=== PATIENT | female | born 1930 | race Caucasian/White ===

== ENCOUNTER 2016-12-06 12:13 | Emergency (ER) | payer MEDICARE, OTHER, MEDICAID ==
[~2016-12-06] VITALS: Ht 157.5 cm; Wt 64.0 kg
[~2016-12-06 12:13] MED LIST: AC325T PO; AMLO10TA PO; ASPI-587 PO; AZIT-21 PO; AZIT250T81 PO; CITA10TA70 PO; DCS100C PO; DONE10TA5 PO; EZET10TA23 PO; NAPR-243 PO; PRED10TA PO; TR1C15 TOP; TRAM50TA2 PO
--- OUTSIDE RECORDS SUMMARY | 2016-12-06 12:19 | XMS REPORT | Continuity of Care Document ---
Author Author [facility] Organization [facility] Address Unknown Phone Unavailable Care Team Providers Care Insurance Follow Up Representative Name Role Phone PRAVEENA TRIMBLE MD PCP Insurance Providers Payer Name Policy Number Subscriber Name Relationship s Medicare [id number] Nancy Glaser 18 Self / Same As Patient For Life [id number] Ananth Glaser 01 [facility] [id number] Nancy Glaser 18 Self / Same As Patient Advance Directives Directive Response Recorded Date/Time Advance Directives Yes 12/13/14 10:25am Health Care Power of Sightseeing Guide Y DEMARIOKirit LIM 12/13/14 10:25am Resuscitation Status DNR-Order Obtained 12/13/14 10:25am Chief Complaint and Reason for Visit Chief Complaint INFLUENZA A,HYPOKALEMIA,FALLS Reason for Visit Influenza A Falls Influenza A Hypokalemia Influenza A Problems Medical Problems Problem Onset Date Status Influenza A Unknown Active Falls Unknown Active Influenza A Unknown Active Hypokalemia Unknown Active Influenza A Unknown Active Medications Medication Dose Route Sig Days/Qty Instructions Order Date Discontinued Date Status Amlodipine Besylate 10 Mg PO DAILY 12/13/14 Active Aspirin 81 Mg PO DAILY 12/13/14 Active Ezetimibe 10 Mg PO DAILY 12/13/14 Active Citalopram Hydrobromide 10 Mg PO DAILY 12/13/14 Active Naproxen 500 Mg PO TWICE A DAY 12/13/14 Active Donepezil HCl 10 Mg PO BEDTIME 12/13/14 Active Docusate Sodium 100 Mg PO BEDTIME 12/13/14 Active Acetaminophen 650 Mg PO EVERY 4HRS PRN PAIN TAKES 2 (325MG) TABLETS Active Tramadol Hcl 50 Mg PO DAILY PRN HEADACHE 12/13/14 Active Azithromycin 250 Mg PO DAILY 12/13/14 12/15/14 Discontinued Azithromycin (Zpak) 0 PO Z-AMBER 6 Qty START DATE 12-12-14 12/15/14 Active Triamcinolone Acetonide (Kenalog 0.1% Cream) TOP TWICE A DAY PRN IRRITATION 12/15/14 Active Prednisone 10 Mg PO DAILY PRN SHORTNESS OF BREATH 7 Qty 12/16/14 Active Social History Social History Problem Response Recorded Date/Time Alcohol Use Denies Use 12/13/2014 10:30am Recreational Drug Use No 12/13/2014 10:30am Recent Foreign Travel No 12/13/2014 10:30am Recent Infectious Disease Exposure No 12/13/2014 10:30am Hospitalization with Isolation Denies 12/16/2014 11:26am Sexually Transmitted Disease No 12/13/2014 10:30am HIV/AIDS No 12/13/2014 10:30am Smoking Status Never a Smoker 12/13/2014 10:09am Do you dip or chew tobacco? No 12/13/2014 10:09am Query Response Start Date Stop Date Smoking Status Never a Smoker Hospital Discharge Instructions Patient Instructions Physician Instructions New, Converted or Re-Newed RX: Other Plan of Care/Instructions/FU: FU with her MD 1 week Activity as Tolerated: Yes Discharge Diet: Low Sodium Diet Return to [facility] For: fever sob Plan of Care Discharge Date 12/16/14 11:10am Disposition 30 STILL A PATIENT Instructions/Education Provided Influenza (DC) Prescriptions See Medications Section Referrals (Unspecified) 1 Week Reason(s) for Referral: schedule a follow up appointment in one week with her Physician Functional Status Query Response Date Recorded Patient Orientation Person Place Confused December 16, 2014 11:26am Comprehension Ability Understands Concepts December 16, 2014 9:00am Allergies, Adverse Reactions, Alerts Allergen Type Severity Reaction Status Last Updated Sulfa (Sulfonamide Antibiotics) ([id number]) Allergy Unknown Active Immunizations Name Given Type Date of Pneumonia Vaccine 07/21/14 Historical Date of Influenza Vaccine 07/21/14 Historical Hepatitis A No Historical Hepatitis B No Historical Tetanus Booster (TDap) Less than 5yrs Historical Vital Signs Acute Vital Signs Vital Response Date/Time Temperature (Fahrenheit) 98.7 degrees F (97.6 - 99.5) Temperature (Calculated Celsius) 37.06518 degrees C (36.4 - 37.5) Temperature Source Temporal Pulse Rate (adult) 65 bpm (60 - 90) Respiratory Rate 18 bpm (12 - 24) O2 Sat by Pulse Oximetry 96 % (88 - 100) Blood Pressure 158/66 mm Hg Pain Pain Intensity 0 Height (Feet) 5 feet Height (Inches) 2.00 inches Height (Calculated Centimeters) 157.072357 cm Weight (Pounds) 136 pounds Weight (Ounces) 9.0 oz Weight (Calculated Grams) 15962.709 gm Weight (Calculated Kilograms) 61.035522 kilograms Calculated BMI 24.87 Results Laboratory Results Test Name Result Units Flags Reference Collection Date/Time Result Date/ Time Comments White Blood Count 8.2 10^3/uL 4.3-11.0 12/13/2014 7:12/13/2014 7: 42am Red Blood Count 4.75 10^6/uL 4.35-5.85 12/13/2014 7:12/13/2014 7: 42am Hemoglobin 14.2 G/DL 11.5-16.0 12/13/2014 7:12/13/2014 7:42am Hematocrit 41 % 35-52 12/13/2014 7:12/13/2014 7:42am Mean Corpuscular Volume 86 FL 80-99 12/13/2014 7:12/13/2014 7: 42am Mean Corpuscular Hemoglobin 30 PG 25-34 12/13/2014 7:12/13/2014 7: 42am Mean Corpuscular Hemoglobin Concent 35 G/DL 32-36 12/13/2014 7: 7:42am Red Cell Distribution Width 12.8 % 10.0-14.5 12/13/2014 7:2014 7:42am Platelet Count 233 10^3/uL 130-400 12/13/2014 7:12/13/2014 7:42am Mean Platelet Volume 10.0 FL 7.4-10.4 12/13/2014 7:12/13/2014 7: 42am Neutrophils (%) (Auto) 78 % H 42-75 12/13/2014 7:12/13/2014 7:42am Lymphocytes (%) (Auto) 10 % L 12-44 12/13/2014 7:12/13/2014 7:42am Monocytes (%) (Auto) 12 % 0-12 12/13/2014 7:12/13/2014 7:42am Eosinophils (%) (Auto) 0 % 0-10 12/13/2014 7:12/13/2014 7:42am Basophils (%) (Auto) 0 % 0-10 12/13/2014 7:12/13/2014 7:42am Neutrophils # (Auto) 6.5 X 10^3 1.8-7.8 12/13/2014 7:12/13/2014 7: 42am Lymphocytes # (Auto) 0.8 X 10^3 L 1.0-4.0 12/13/2014 7:12/13/2014 7: 42am Monocytes # (Auto) 1.0 X 10^3 0.0-1.0 12/13/2014 7:12/13/2014 7: 42am Eosinophils # (Auto) 0.0 10^3/uL 0.0-0.3 12/13/2014 7:12/13/2014 7 :42am Basophils # (Auto) 0.0 10^3/uL 0.0-0.1 12/13/2014 7:12/13/2014 7: 42am Sodium Level 138 MMOL/L 135-145 12/14/2014 5:12/14/2014 6:24am Potassium Level 3.6 MMOL/L 3.6-5.0 12/14/2014 5:12/14/2014 6:24am Chloride Level 105 MMOL/L 98-107 12/14/2014 5:12/14/2014 6:24am Carbon Dioxide Level 24 MMOL/L 21-32 12/14/2014 5:12/14/2014 6: 24am Blood Urea Nitrogen 11 MG/DL 7-18 12/14/2014 5:12/14/2014 6:24am Creatinine 0.66 MG/DL 0.60-1.30 12/14/2014 5:12/14/2014 6:24am BUN/Creatinine Ratio 17 12/14/2014 5:12/14/2014 6:24am Estimat Glomerular Filtration Rate > 60 12/14/2014 5:2014 6:24am GFR INTERPRETIVE DATA UNITS FOR ESTIMATED GFR (eGFR): mL/min/1.73 M2 REFERENCE RANGE FOR ESTIMATED GFR (eGFR) eGFR NORMAL eGFR >60 MODERATELY DECREASED eGFR 30-59 SEVERLY DECREASED eGFR 15-29 KIDNEY FAILURE <15 (OR DIALYSIS) Glucose Level 140 MG/DL H 70-105 12/14/2014 5:12/14/2014 6:24am Calcium Level 8.8 MG/DL 8.5-10.1 12/14/2014 5:12/14/2014 6:24am Total Bilirubin 0.5 MG/DL 0.1-1.0 12/13/2014 7:12/13/2014 8:09am Alkaline Phosphatase 72 U/L 40-136 12/13/2014 7:12/13/2014 8:09am Aspartate Amino Transf (AST/SGOT) 43 U/L H 5-34 12/13/2014 7:2014 8:09am Alanine Aminotransferase (ALT/SGPT) 36 U/L 0-55 12/13/2014 7:12/13 8:09am Total Protein 7.0 G/DL 6.4-8.2 12/13/2014 7:12/13/2014 8:09am Albumin 4.0 G/DL 3.2-4.5 12/13/2014 7:12/13/2014 8:09am Procedures No known history of procedures. Encounters Encounter Location Date/Time Discharged Inpatient [facility] 12/13/14 1:40pm Recent Diagnosis Influenza A Falls Influenza A Hypokalemia Influenza A
--- NOTE | 2016-12-06 13:54 | Diagnostic Imaging Report ---
PROCEDURE: CT head and CT cervical spine without contrast. TECHNIQUE: Multiple contiguous axial images were obtained through the brain and cervical spine without the use of intravenous contrast. Sagittal and coronal reformations through the cervical spine were then performed. INDICATION: Fall. Pain above the right orbit. FINDINGS: CT head: There is no intracranial hemorrhage, edema, or mass effect. There is periventricular and deep white matter extensive somewhat symmetric hypodensities seen compatible with chronic microvascular ischemic changes, commonly seen at the patient's age. There is no hydrocephalus. No extra-axial fluid collection. The calvarium appears grossly unremarkable. The visualized portions of the orbits and paranasal sinuses demonstrate no obvious abnormality. CT cervical spine: There is satisfactory alignment of the posterior spinal line, of the facet joints, and of the lateral masses of C1 and C2. Good alignment of the atlantooccipital joints seen. No widening of the predental space. The vertebral body heights are preserved. There is moderate disc height loss at disc levels C3-C4 and C5-C6 with small posterior osteophytes seen at these levels. There is moderate foraminal stenosis bilaterally are also seen at these levels from uncovertebral and facet joint arthropathy. No fracture seen. IMPRESSION: CT head: No intracranial hemorrhage. Chronic white matter ischemic changes seen. CT cervical spine: No fracture seen. Prominent disc and facet degenerative changes. Dictated by: Dictated on workstation # [id number]
[2016-12-06 14:30] LABS: BILIRUBIN,URINE NEGATIVE (NEGATIVE); KETONES,URINE NEGATIVE (NEGATIVE); LEUKOCYTE ESTERASE ,URINE 2+ (NEGATIVE); NITRITE,URINE NEGATIVE (NEGATIVE); PH,URINE 5 (5-9); PROTEIN,URINE NEGATIVE (NEGATIVE); UROBILINOGEN,URINE NORMAL (NORMAL)
--- NOTE | 2016-12-06 14:59 | ED Fall/Injury ---
General Chief Complaint: Head/Cervical Problems Stated Complaint: FALL Nursing Triage Note: Pt fell in her room at the long term and reportedly hit her head. Denies LOC but patient is a poor historian about the fall. No bruising/redness/swelling noted on head. Source: patient, caregiver Exam Limitations: no limitations History of Present Illness Time seen by provider: 13:21 Initial Comments This pleasant 85-year-old woman presents to the emergency room after having a fall at the assisted living facility. No eyewitnesses are present with her at this time and she has poor recollection of the incident. She has absolutely no complaints at this time. There was no known loss of consciousness. No evidence of injury on exam. Patient is anxious to leave. She is ambulatory. Allergies and Home Medications Allergies Coded Allergies: Sulfa (Sulfonamide Antibiotics) (Verified Allergy, Unknown, 12/13/14) Home Medications Acetaminophen 325 Mg Tab 650 MG PO Q4H PRN PRN PAIN (Reported) TAKES 2 (325MG) TABLETS Amlodipine Besylate 10 Mg Tablet 10 MG PO DAILY (Reported) Aspirin 81 Mg Tablet.dr 81 MG PO DAILY (Reported) Azithromycin 250 Mg Tab #6 0 PO Z-AMBER (Reported) 2 Tabs 1st day (now), 1 Tab daily START DATE 12-12-14 Cephalexin 500 Mg Capsule #21 500 MG PO TID Prescribed by: GIBRAN GONZALEZ on 12/06/16 1541 Citalopram Hydrobromide 10 Mg Tablet 10 MG PO DAILY (Reported) Docusate Sodium 100 Mg Cap 100 MG PO HS (Reported) Donepezil HCl 10 Mg Tablet 10 MG PO HS (Reported) Ezetimibe 10 Mg Tablet 10 MG PO DAILY (Reported) Naproxen 500 Mg Tablet 500 MG PO BID (Reported) Prednisone 10 Mg Tablet #7 10 MG PO DAILY PRN PRN SHORTNESS OF BREATH Prescribed by: JOSE RAMIREZ on 12/16/14 0915 Tramadol Hcl 50 Mg Tablet 50 MG PO DAILY PRN PRN HEADACHE (Reported) Triamcinolone Acet 15 Gm Cr TOP BID PRN PRN IRRITATION (Reported) Constitutional: no symptoms reported Eyes: No Symptoms Reported Ears, Nose, Mouth, Throat: no symptoms reported Respiratory: no symptoms reported Cardiovascular: no symptoms reported Gastrointestinal: no symptoms reported Genitourinary: no symptoms reported : No Musculoskeletal: no symptoms reported Skin: no symptoms reported Psychiatric/Neurological: Other (Primary historian due to cognitive deficits related to dementia) Past Pyjepyo-Wkypqz-Ebtdch Hx Patient Social History Alcohol Use: Denies Use Recreational Drug Use: No Smoking Status: Never a Smoker Recent Foreign Travel: No Contact w/Someone Who Travel: No Recent Infectious Disease Expo: No Recent Hopitalizations: No Physical Abuse Screen: No Sexual Abuse: No Immunizations Up To Date Tetanus Booster (TDap): Less than 5yrs Date of Pneumonia Vaccine: Jul 21, 2014 Date of Influenza Vaccine: Jul 21, 2014 Surgeries HX Surgeries: Yes (ROCKY MASTECTOMY, HYSTERECTOMY) Surgeries: Hysterectomy, Orthopedic Respiratory Hx Respiratory Disorders: No Cardiovascular Hx Cardiac Disorders: Yes Cardiac Disorders: High Cholesterol, Hypertension Neurological Hx Neurological Disorders: Yes Neurological Disorders: Dementia Reproductive System : No Hx Reproductive Disorders: No Sexually Transmitted Disease: No HIV/AIDS: No Female Reproductive Disorders: Denies Genitourinary Hx Genitourinary Disorders: Yes Genitourinary Disorders: UTI-Chronic Gastrointestinal Hx Gastrointestinal Disorders: Yes Gastrointestinal Disorders: Gastroesophageal Reflux, Hiatal Hernia Musculoskeletal Hx Musculoskeletal Disorders: Yes (BROKEN ANKLE) Musculoskeletal Disorders: Chronic Back Pain, Fractures Endocrine Hx Endocrine Disorders: No HEENT HX ENT Disorders: No Loss of Vision: Denies Hearing Impairment: Denies Cancer Hx Cancer: Yes Cancer: Breast Psychosocial Hx Psychiatric Problems: Yes Behavioral Health Disorders: Depression Integumentary HX Skin/Integumentary Disorder: No Blood Transfusions Hx Blood Disorders: No Adverse Reaction to a Blood Tr: No Family Medical History Family Medial History: Alzheimer's disease G8 SISTER Cataracts G8 SISTER Dementia G8 SISTER Diabetes mellitus 19 MOTHER G8 SISTER Hypertension G8 BROTHER G8 BROTHER G8 SISTER Kidney disease G8 SISTER Neoplasm 19 FATHER Respiratory disorder 19 FATHER No Family History of: AIDS Abdominal aortic aneurysm Creston's disease Alcoholism Aphasia Arthritis Asthma Cancer of mouth Cardiovascular disease Colon cancer Completed stroke Congenital disease Congenital heart disease Coronary thrombosis Cystic fibrosis Deafness or hearing loss Drug abuse Dysphasia Fibrocystic disease of breast Gastroenteritis Glaucoma Headache disorder Hypercholesterolemia Infertility Myocardial infarction Not obtainable due to adoption Osteoporosis Parkinson's disease Prostate cancer Psychosocial problem Seizure disorder Severe allergy Thyroid disease Tuberculosis Visual disorder Physical Exam Vital Signs Vital Sign - Last 12Hours 12/06/16 12:39 Temp 97.6 Pulse 82 Resp 16 B/P 126/80 Pulse Ox 98 O2 Delivery Room Air Capillary Refill : Less Than 3 Seconds General Appearance: WD/WN no apparent distress HEENT: PERRL/EOMI normal ENT inspection pharynx normal Neck: non-tender full range of motion supple normal inspection Cardiovascular: regular rate, rhythm no edema no murmur Respiratory: lungs clear normal breath sounds no respiratory distress no accessory muscle use Gastrointestinal: non tender soft Back: normal inspection no vertebral tenderness Extremities: non-tender normal inspection other (No pain with hip palpation or rotation) Neurologic/Psychiatric: golf ball marker II-XII nml as tested no motor/sensory deficits alert normal mood/affect other (Baseline cognitive deficits from dementia) Skin: normal color warm/dry Jeff Coma Score Best Eye Response: (4) Open Spontaneously Best Verbal Response: (4) Confused Conversation (Baseline from dementia) Best Motor Response: (6) Obeys Commands Jeff Total: 15 Progress/Results/Core Measures Results/Orders Lab Results Laboratory Tests Test 12/06/16 14:15 Range/Units Urine Bacteria MODERATE H /HPF Urine Bilirubin NEGATIVE NEGATIVE Urine Casts NONE /LPF Urine Clarity CLEAR Urine Color YELLOW Urine Crystals NONE /LPF Urine Culture Indicated YES Urine Glucose (UA) NEGATIVE NEGATIVE Urine Ketones NEGATIVE NEGATIVE Urine Leukocyte Esterase 2+ H NEGATIVE Urine Mucus SMALL H /LPF Urine Nitrite NEGATIVE NEGATIVE Urine Protein NEGATIVE NEGATIVE Urine RBC RARE /HPF Urine RBC (Auto) 1+ H NEGATIVE Urine Specific [place] 1.030 H 1.016-1.022 Urine Squamous Epithelial Cells 10-25 H /HPF Urine Urobilinogen NORMAL NORMAL MG/DL Urine WBC 10-25 H /HPF Urine pH 5 5-9 Micro Results Microbiology 12/06/16 Urine Culture - Preliminary, Resulted My Orders Orders-GIBRAN ANDRES MD Ct Head/Cervical Spine Wo (12/06/16 13:21) Ua Culture If Indicated (12/06/16 13:21) Urine Culture (12/06/16 14:15) Vital Signs/I&O Vital Sign - Last 12Hours 12/06/16 12/06/16 12/06/16 12/06/16 12:39 15:47 15:48 15:48 Temp 97.6 97.6 97.6 97.6 Pulse 82 80 Resp 16 16 B/P 126/80 Pulse Ox 98 98 O2 Delivery Room Air Blood Pressure Mean: 95 Progress Note : Progress Note No injuries were identified. Patient was ambulatory in the ER. She was anxious to leave. Urinary tract infection was identified by UA. Treatment was initiated with Rocephin. Diagnostic Imaging Diagonstic Imaging: CT Plain Films/CT/US/NM/MRI: c-spine, head Comments CT head and C-spine viewed by me and report reviewed. See report below: NAME: MELODIE GLASER [facility] REC#: [id number] PT STATUS: REG ER : 1930 PHYSICIAN: GIBRAN ANDRES MD ADMIT DATE: 12/06/16/ER Signed Date of Exam:12/06/16 CT HEAD/CERVICAL SPINE WO PROCEDURE: CT head and CT cervical spine without contrast. TECHNIQUE: Multiple contiguous axial images were obtained through the brain and cervical spine without the use of intravenous contrast. Sagittal and coronal reformations through the cervical spine were then performed. INDICATION: Fall. Pain above the right orbit. FINDINGS: CT head: There is no intracranial hemorrhage, edema, or mass effect. There is periventricular and deep white matter extensive somewhat symmetric hypodensities seen compatible with chronic microvascular ischemic changes, commonly seen at the patient's age. There is no hydrocephalus. No extra-axial fluid collection. The calvarium appears grossly unremarkable. The visualized portions of the orbits and paranasal sinuses demonstrate no obvious abnormality. CT cervical spine: There is satisfactory alignment of the posterior spinal line, of the facet joints, and of the lateral masses of C1 and C2. Good alignment of the atlantooccipital joints seen. No widening of the predental space. The vertebral body heights are preserved. There is moderate disc height loss at disc levels C3-C4 and C5-C6 with small posterior osteophytes seen at these levels. There is moderate foraminal stenosis bilaterally are also seen at these levels from uncovertebral and facet joint arthropathy. No fracture seen. IMPRESSION: CT head: No intracranial hemorrhage. Chronic white matter ischemic changes seen. CT cervical spine: No fracture seen. Prominent disc and facet degenerative changes. Dictated by: Dictated on workstation # [id number] Dict: 12/06/16 1344 Trans: 12/06/16 1420 TIGIST [id number] Interpreted by: CORNELL DRAKE MD Electronically signed by: CORNELL DRAKE MD 12/06/16 1423 Departure Impression Impression: Primary Impression: Fall on same level Qualified Code: W18.30XA - Fall on same level, unspecified, initial encounter Additional Impression: Urinary tract infection Qualified Code: N39.0 - Urinary tract infection, site not specified Disposition: 01 HOME, SELF-CARE Condition: Improved Departure-Patient Inst. Decision time for Depature: 15:30 Referrals: PRAVEENA TRIMBLE MD (PCP/Family) Primary Care Physician Patient Instructions: Preventing Falls in the Older Adult, Urinary Tract Infections in Adults Add. Discharge Instructions: Encourage plenty of clear liquids. Complete your antibiotics as prescribed. Have your doctor follow-up on the urine culture results in 48 hours. Return to the emergency room if symptoms worsen. All discharge instructions reviewed with patient and/or family. Voiced understanding. Scripts Cephalexin (Keflex)500 Mg [id number] Mg PO TID #21 CAP Prov:GIBRAN ANDRES MD 12/06/16 Copy Copies To 1: PRAVEENA TRIMBLE MD, JOSHUA T MD Dec 06, 2016 14:59
[2016-12-06] MEDS ORDERED: cefTRIAXone 1 GM (ROCEPHIN) VIAL IM ONE (15:30)
[2016-12-06] MEDS ORDERED: cefTRIAXone INJECTION 1,000 MG in NORMAL SALINE (BAXTER MINI) 50 ML IV ONE (15:30)
[2016-12-06] MEDS ORDERED: LIDOCAINE 1% INJ 20 ML (XYLOCAINE) VIAL INJ ONE (15:30)
[2016-12-06] MEDS ORDERED: CEPH-507 PO (15:41)
[2016-12-06 15:48] VITALS: BP 121/80
== END 2016-12-06 15:48 | disposition home or self-care (01) ==
LOC: EDUNIT# 12:13 → ER 12:15
DX: S09.90XA Unspecified injury of head, initial encounter (principal); M47.812 Spondylosis without myelopathy or radiculopathy, cervical region; I10 Essential (primary) hypertension; Z79.82 Long term (current) use of aspirin; Z79.899 Other long term (current) drug therapy; W01.0XXA Fall on same level from slipping, tripping and stumbling without subsequent striking against object, initial encounter; Y92.129 Unspecified place in nursing home as the place of occurrence of the external cause; Y99.8 Other external cause status
CPT/HCPCS: 70450; 72125; 81000; 87088; 96372

== ENCOUNTER 2017-03-15 04:21 | Emergency (ER) | payer MEDICARE, OTHER, MEDICAID ==
[~2017-03-15] VITALS: Ht 157.5 cm; Wt 63.5 kg
[~2017-03-15 04:21] MED LIST changes: +CEPH-507 PO
[2017-03-15] MEDS ORDERED: TETANUS,DIPTH,PERTUSS P/F (BOOSTRIX) 0.5 ML VIAL IM ONE (04:30)
[2017-03-15 04:47] LABS: BASOPHILS % (AUTO) 0 % (0-10); EOSINOPHILS # (AUTO) 0.1 10^3/uL (0.0-0.3); EOSINOPHILS % (AUTO) 2 % (0-10); LYMPHOCYTES # (AUTO) 2.8 X 10^3 (1.0-4.0); LYMPHOCYTES % (AUTO) 46 % (12-44); MEAN CORPUSCULAR HEMOGLOBIN 24 PG (25-34); MEAN CORPUSCULAR HGB CONC 32 G/DL (32-36); MEAN CORPUSCULAR VOLUME 76 FL (80-99); MEAN PLATELET VOLUME 9.2 FL (7.4-10.4); MONOCYTES # (AUTO) 0.7 X 10^3 (0.0-1.0); MONOCYTES % (AUTO) 12 % (0-12); NEUTROPHILS # (AUTO) 2.5 X 10^3 (1.8-7.8); NEUTROPHILS % (AUTO) 41 % (42-75); PLATELET COUNT 333 10^3/uL (130-400); RED CELL DISTRIBUTION WIDTH 16.3 % (10.0-14.5); WHITE BLOOD COUNT 6.2 10^3/uL (4.3-11.0)
[2017-03-15 05:09] LABS: ALANINE AMINOTRANSFERASE 10 U/L (0-55); ALBUMIN 4.3 G/DL (3.2-4.5); ANION GAP 13 MMOL/L (5-14); ASPARTATE AMINO TRANSFERASE 19 U/L (5-34); BILIRUBIN,TOTAL 0.3 MG/DL (0.1-1.0); BLOOD UREA NITROGEN 12 MG/DL (7-18); BUN/CREATININE RATIO 17; CALCIUM 8.9 MG/DL (8.5-10.1); CARBON DIOXIDE 21 MMOL/L (21-32); CHLORIDE 109 MMOL/L (98-107); CREATININE SERUM 0.69 MG/DL (0.60-1.30); GFR ESTIMATED > 60; GLUCOSE 100 MG/DL (70-105); POTASSIUM 3.5 MMOL/L (3.6-5.0); SODIUM 143 MMOL/L (135-145)
[2017-03-15 05:15] LABS: BILIRUBIN,URINE NEGATIVE (NEGATIVE); KETONES,URINE NEGATIVE (NEGATIVE); LEUKOCYTE ESTERASE ,URINE 1+ (NEGATIVE); NITRITE,URINE NEGATIVE (NEGATIVE); PH,URINE 7 (5-9); PROTEIN,URINE NEGATIVE (NEGATIVE); UROBILINOGEN,URINE NORMAL (NORMAL)
[2017-03-15] MEDS ORDERED: LIDOCAINE/EPI 1%-1:100,000 (XYLOCAINE) 20ML INJ ONE (05:15)
[2017-03-15 05:26] LABS: WBC,URINE RARE /HPF
--- NOTE | 2017-03-15 05:42 | ED Fall/Injury ---
General Chief Complaint: Trauma-Non Activation Stated Complaint: FALL,ABRASION BELOW L EYE Nursing Triage Note: PT TO ED 7 PER EMS FOR LACERATION ONSET AFTER FALL AT ASSISTED LIVING. Source: patient, EMS, retirement records, caregiver Exam Limitations: no limitations History of Present Illness Time seen by provider: 04:25 Initial Comments This 86-year-old resident of [facility] presents via EMS with a facial laceration beneath the left eye after having an unwitnessed fall. Patient is a poor historian due to dementia. The fall was unwitnessed. There is no known loss of consciousness. Patient is alert and at her baseline orientation. She denies any other injuries. EMS reports she walked freely and independently to the cot. Location Injury Occurred: [facility] Allergies and Home Medications Allergies Coded Allergies: Sulfa (Sulfonamide Antibiotics) (Verified Allergy, Unknown, 12/13/14) Home Medications Acetaminophen 325 Mg Tab, 650 MG PO Q4H PRN for PAIN, (Reported) TAKES 2 (325MG) TABLETS Amlodipine Besylate 10 Mg Tablet, 10 MG PO DAILY, (Reported) Aspirin 81 Mg Tablet.dr, 81 MG PO DAILY, (Reported) Azithromycin 250 Mg Tab, 0 PO Z-AMBER, #6 (Reported) 2 Tabs 1st day (now), 1 Tab daily START DATE 12-12-14 Cephalexin 500 Mg Capsule, 500 MG PO TID, #21 Prescribed by: GIBRAN GONZALEZ on 12/06/16 1541 Citalopram Hydrobromide 10 Mg Tablet, 10 MG PO DAILY, (Reported) Docusate Sodium 100 Mg Cap, 100 MG PO HS, (Reported) Donepezil HCl 10 Mg Tablet, 10 MG PO HS, (Reported) Ezetimibe 10 Mg Tablet, 10 MG PO DAILY, (Reported) Naproxen 500 Mg Tablet, 500 MG PO BID, (Reported) Prednisone 10 Mg Tablet, 10 MG PO DAILY PRN for SHORTNESS OF BREATH, #7 Ref 0 Prescribed by: JOSE RAMIREZ on 12/16/14 0915 Tramadol Hcl 50 Mg Tablet, 50 MG PO DAILY PRN for HEADACHE, (Reported) Triamcinolone Acet 15 Gm Cr, TOP BID PRN for IRRITATION, (Reported) Constitutional: no symptoms reported Eyes: No Symptoms Reported Ears, Nose, Mouth, Throat: see HPI Respiratory: no symptoms reported Cardiovascular: no symptoms reported Gastrointestinal: no symptoms reported Genitourinary: no symptoms reported Musculoskeletal: no symptoms reported Skin: see HPI Psychiatric/Neurological: See HPI Past Eemlgqq-Ndomev-Jnbmtw Hx Patient Social History Alcohol Use: Denies Use Recreational Drug Use: No Smoking Status: Never a Smoker Recent Foreign Travel: No Contact w/Someone Who Travel: No Recent Infectious Disease Expo: No Recent Hopitalizations: No Immunizations Up To Date Tetanus Booster (TDap): Less than 5yrs Date of Pneumonia Vaccine: Jul 21, 2014 Date of Influenza Vaccine: Jul 21, 2014 Surgeries HX Surgeries: Yes (ROCKY MASTECTOMY, HYSTERECTOMY) Surgeries: Hysterectomy, Orthopedic Respiratory Hx Respiratory Disorders: No Cardiovascular Hx Cardiac Disorders: Yes Cardiac Disorders: High Cholesterol, Hypertension Neurological Hx Neurological Disorders: Yes Neurological Disorders: Dementia Reproductive System Hx Reproductive Disorders: No Sexually Transmitted Disease: No HIV/AIDS: No Female Reproductive Disorders: Denies Genitourinary Hx Genitourinary Disorders: Yes Genitourinary Disorders: UTI-Chronic Gastrointestinal Hx Gastrointestinal Disorders: Yes Gastrointestinal Disorders: Gastroesophageal Reflux, Hiatal Hernia Musculoskeletal Hx Musculoskeletal Disorders: Yes (BROKEN ANKLE) Musculoskeletal Disorders: Chronic Back Pain, Fractures Endocrine Hx Endocrine Disorders: No HEENT HX ENT Disorders: No Loss of Vision: Denies Hearing Impairment: Denies Cancer Hx Cancer: Yes Cancer: Breast Psychosocial Hx Psychiatric Problems: Yes Behavioral Health Disorders: Depression Integumentary HX Skin/Integumentary Disorder: No Blood Transfusions Hx Blood Disorders: No Adverse Reaction to a Blood Tr: No Family Medical History Family Medial History: Alzheimer's disease G8 SISTER Cataracts G8 SISTER Dementia G8 SISTER Diabetes mellitus 19 MOTHER G8 SISTER Hypertension G8 BROTHER G8 BROTHER G8 SISTER Kidney disease G8 SISTER Neoplasm 19 FATHER Respiratory disorder 19 FATHER No Family History of: AIDS Abdominal aortic aneurysm Shaw[place]'s disease Alcoholism Aphasia Arthritis Asthma Cancer of mouth Cardiovascular disease Colon cancer Completed stroke Congenital disease Congenital heart disease Coronary thrombosis Cystic fibrosis Deafness or hearing loss Drug abuse Dysphasia Fibrocystic disease of breast Gastroenteritis Glaucoma Headache disorder Hypercholesterolemia Infertility Myocardial infarction Not obtainable due to adoption Osteoporosis Parkinson's disease Prostate cancer Psychosocial problem Seizure disorder Severe allergy Thyroid disease Tuberculosis Visual disorder Physical Exam Vital Signs Vital Sign - Last 12Hours 03/15/17 04:21 Temp 97.3 Pulse 101 Resp 20 B/P (MAP) 194/83 Pulse Ox 94 O2 Delivery Room Air Capillary Refill : Less Than 3 Seconds General Appearance: WD/WN, no apparent distress HEENT: PERRL/EOMI, TMs normal, pharynx normal, other (2 cm laceration on the left cheek) Neck: non-tender, full range of motion, supple Cardiovascular: regular rate, rhythm, no edema, no murmur Respiratory: lungs clear, normal breath sounds, no respiratory distress, no accessory muscle use Gastrointestinal: non tender, soft Extremities: normal inspection, no pedal edema, other (normal range of motion in the lower extremities with no joint pain.) Neurologic/Psychiatric: nurse gynecology II-XII nml as tested, no motor/sensory deficits, alert, normal mood/affect, other (cognitive deficits due to dementia at baseline ) Skin: normal color, warm/dry [place] Coma Score Best Eye Response: (4) Open Spontaneously Best Verbal Response: (4) Confused Conversation Best Motor Response: (6) Obeys Commands Jeff Total: 14 Laceration Repair : Wound Location: Face Other Wound Location Left cheek Wound Length (cm): 2 Wound's Depth, Shape: superficial, flap Wound Explored: clean Betadine Prep?: Yes Anesthesia: Lidocaine w/ Epi Volume Anesthetic (ccs): 4 Suture: Prolene Suture Size: 5-0 Number of Sutures: 3 Sterile Dressing Applied?: No Progress Wound was cleaned by nursing. Local anesthesia was provided with lidocaine with epinephrine. Wound was approximated with 3 sutures of 5-0 Prolene. Patient tolerated the procedure well. Closure controlled the bleeding. Progress/Results/Core Measures Results/Orders Lab Results Laboratory Tests Test 03/15/17 04:36 03/15/17 05:09 Range/Units White Blood Count 6.2 4.3-11.0 10^3/uL Red Blood Count 5.00 4.35-5.85 10^6/uL Hemoglobin 12.0 11.5-16.0 G/DL Hematocrit 38 35-52 % Mean Corpuscular Volume 76 L 80-99 FL Mean Corpuscular Hemoglobin 24 L 25-34 PG Mean Corpuscular Hemoglobin Concent 32 32-36 G/DL Red Cell Distribution Width 16.3 H 10.0-14.5 % Platelet Count 333 130-400 10^3/uL Mean Platelet Volume 9.2 7.4-10.4 FL Neutrophils (%) (Auto) 41 L 42-75 % Lymphocytes (%) (Auto) 46 H 12-44 % Monocytes (%) (Auto) 12 0-12 % Eosinophils (%) (Auto) 2 0-10 % Basophils (%) (Auto) 0 0-10 % Neutrophils # (Auto) 2.5 1.8-7.8 X 10^3 Lymphocytes # (Auto) 2.8 1.0-4.0 X 10^3 Monocytes # (Auto) 0.7 0.0-1.0 X 10^3 Eosinophils # (Auto) 0.1 0.0-0.3 10^3/uL Basophils # (Auto) 0.0 0.0-0.1 10^3/uL Sodium Level 143 135-145 MMOL/L Potassium Level 3.5 L 3.6-5.0 MMOL/L Chloride Level 109 H 98-107 MMOL/L Carbon Dioxide Level 21 21-32 MMOL/L Anion Gap 13 5-14 MMOL/L Blood Urea Nitrogen 12 7-18 MG/DL Creatinine 0.69 0.60-1.30 MG/DL Estimat Glomerular Filtration Rate > 60 BUN/Creatinine Ratio 17 Glucose Level 100 70-105 MG/DL Calcium Level 8.9 8.5-10.1 MG/DL Total Bilirubin 0.3 0.1-1.0 MG/DL Aspartate Amino Transf (AST/SGOT) 19 5-34 U/L Alanine Aminotransferase (ALT/SGPT) 10 0-55 U/L Alkaline Phosphatase 69 40-136 U/L Total Protein 7.0 6.4-8.2 G/DL Albumin 4.3 3.2-4.5 G/DL Urine Color YELLOW Urine Clarity CLEAR Urine pH 7 5-9 Urine Specific [place] 1.010 L 1.016-1.022 Urine Protein NEGATIVE NEGATIVE Urine Glucose (UA) NEGATIVE NEGATIVE Urine Ketones NEGATIVE NEGATIVE Urine Nitrite NEGATIVE NEGATIVE Urine Bilirubin NEGATIVE NEGATIVE Urine Urobilinogen NORMAL NORMAL MG/DL Urine Leukocyte Esterase 1+ H NEGATIVE Urine RBC (Auto) 3+ H NEGATIVE Urine RBC 5-10 H /HPF Urine WBC RARE /HPF Urine Squamous Epithelial Cells 2-5 /HPF Urine Crystals NONE /LPF Urine Bacteria NEGATIVE /HPF Urine Casts NONE /LPF Urine Mucus NEGATIVE /LPF Urine Culture Indicated NO My Orders Orders - GIBRAN ANDRES MD Cbc With Automated Diff (03/15/17 04:27) Comprehensive Metabolic Panel (03/15/17 04:27) Ua Culture If Indicated (03/15/17 04:27) Ct Head/Face/Cervical Wo (03/15/17 04:27) Saline Lock/Iv-Start (03/15/17 04:27) Dipht,Pertuss(Acell),Tet Adult (Boostrix (03/15/17 04:30) Lidocaine/Epi 1% 1:100,000 (Xylocaine /E (03/15/17 05:15) Medications Given in ED Vital Signs/I&O Vital Sign - Last 12Hours 03/15/17 03/15/17 04:21 06:45 Temp 97.3 Pulse 101 91 Resp 20 18 B/P (MAP) 194/83 Pulse Ox 94 98 O2 Delivery Room Air Blood Pressure Mean: 120 Progress Note : Progress Note CT of the head, face and C-spine was obtained and reviewed. No significant injuries were identified. Wound was repaired. Labs and UA reviewed. Boostrix tetanus booster administered. Diagnostic Imaging Diagonstic Imaging: CT Plain Films/CT/US/NM/MRI: facial bones, c-spine, head Comments CT viewed by me and [employer] report reviewed. No bony or intracranial injuries identified. There is mucosal thickening of the right maxillary sinus and soft tissue injury of the left face. Departure Impression Impression: Primary Impression: Fall on same level Qualified Codes: W18.30XA - Fall on same level, unspecified, initial encounter Additional Impression: Laceration of face Qualified Codes: S01.81XA - Laceration without foreign body of other part of head, initial encounter Disposition: 01 HOME, SELF-CARE Condition: Improved Departure-Patient Inst. Decision time for Depature: 06:30 Referrals: PRAVEENA TRIMBLE MD (PCP/Family) Primary Care Physician Patient Instructions: Laceration Repair With Stitches (DC) Add. Discharge Instructions: Monitor for signs of infection such as increasing redness, puslike drainage, or fever. Return to care promptly if you notice these symptoms. Return in 5-7 days for suture removal. All discharge instructions reviewed with patient and/or family. Voiced understanding. GIBRAN ANDRES MD Mar 15, 2017 05:42
[2017-03-15 06:45] VITALS: BP 182/86
--- NOTE | 2017-03-15 07:44 | Diagnostic Imaging Report ---
PROCEDURE: CT head, face, and cervical spine without contrast. TECHNIQUE: Multiple contiguous axial images were obtained through the head, neck, and facial bones without the use of intravenous contrast. Sagittal and coronal reformations through the cervical spine and facial bones were also performed. INDICATION: Fall with laceration to cheek bone. FINDINGS: CT head: There is cortical atrophy with periventricular white matter changes. No mass effect. No intracranial hemorrhage. No evidence of calvarial fractures. Mastoid air cells and paranasal sinuses are clear. There is left facial soft tissue swelling consistent with hematoma. IMPRESSION: Cortical atrophy with soft tissue hematoma of the scalp. CT facial bones: No fractures are demonstrated of the facial bones. Paranasal sinuses are well-aerated. There is some mucosal thickening within the right maxillary sinus. There is considerable soft tissue swelling over the left mid face. IMPRESSION: Large hematoma overlying the left mid face with no bony fractures demonstrated. CT cervical spine: Sagittal and coronal images show good alignment of vertebral bodies. Body heights and disc spaces well maintained. Facets are in good position. No fractures. Diffuse degenerative changes noted. IMPRESSION: Diffuse degenerative cervical disc disease with no acute abnormality. These findings are in agreement with the preliminary report. Dictated by: Dictated on workstation # [id number]
== END 2017-03-15 06:45 | disposition home or self-care (01) ==
LOC: EDUNIT# 04:21 → ER 04:25
DX: S01.412A Laceration without foreign body of left cheek and temporomandibular area, initial encounter (principal); Z23 Encounter for immunization; I10 Essential (primary) hypertension; F03.90 Unspecified dementia, unspecified severity, without behavioral disturbance, psychotic disturbance, mood disturbance, and anxiety; Z79.82 Long term (current) use of aspirin; Z79.899 Other long term (current) drug therapy; W01.0XXA Fall on same level from slipping, tripping and stumbling without subsequent striking against object, initial encounter; Y92.129 Unspecified place in nursing home as the place of occurrence of the external cause; Y99.8 Other external cause status
CPT/HCPCS: 12011; 36415; 70450; 70486; 72125; 80053; 81000; 85025; 90471; 90715

== ENCOUNTER 2018-05-08 17:50 | Emergency (ER) | payer MEDICARE, OTHER, MEDICAID ==
[~2018-05-08] VITALS: Ht 157.5 cm; Wt 54.4 kg
--- OUTSIDE RECORDS SUMMARY | 2018-05-08 17:56 | XMS REPORT | Continuity of Care Document ---
Author Author [facility] Organization [facility] Address Unknown Phone Unavailable Allergies Active Description Code Type Severity Reaction Onset Reported/Identified Relationship to Patient Clinical Status Yes Sulfa (Sulfonamide Antibiotics) [id number] Drug Allergy Unknown N/A 2014 Medications There is no data. Problems Date Dx Coded Attending Type Code Diagnosis Diagnosed By 12/16/2014 JAMES ARAUZ, JOSE Rahman Ot 272.0 PURE HYPERCHOLESTEROLEM 12/16/2014 JAMES ARAUZ, JOSE Rahman Ot 276.8 HYPOPOTASSEMIA 12/16/2014 JAMES ARAUZ, JOSE Rahamn Ot 294.20 DEMENTIA, UNSPECIFIED, WITHOUT BEHAVIORA 12/16/2014 JAMES ARAUZ, JOSE Rahman Ot 401.9 HYPERTENSION NOS 12/16/2014 JAMES ARAUZ, JOSE Rahman Ot 487.1 FLU W RESP MANIFEST NEC 12/16/2014 JAMES ARAUZ, JOSE Rahman Ot 530.81 ESOPHAGEAL REFLUX 12/16/2014 JOSE RAMIREZ MD Ot 553.3 DIAPHRAGMATIC HERNIA 12/16/2014 JAMES ARAUZ, JOSE Rahman Ot 715.90 OSTEOARTHROS NOS-UNSPEC 05/14/2015 NAI ARAUZ, PRAVEENA Pryor Ot 812.01 05/14/2015 NAI ARAUZ, PRAVEENA Pryor Ot E000.8 05/14/2015 NAI ARAUZ, PRAVEENA Pryor Ot E888.9 05/16/2015 NAI ARAUZ, PRAVEENA Pryor Ot 812.01 05/16/2015 NAI ARAUZ, PRAVEENA Pryor Ot E000.8 05/16/2015 NAI ARAUZ, PRAVEENA Pryor Ot E888.9 05/16/2015 NAI ARAUZ, PRAVEENA Pryor Ot 812.01 05/16/2015 NAI ARAUZ, PRAVEENA Pryor Ot E000.8 05/16/2015 NAI ARAUZ, PRAVEENA Pryor Ot E888.9 12/06/2016 DMITRY ARAUZ, GIBRAN Mejia Ot I10 ESSENTIAL (PRIMARY) HYPERTENSION 12/06/2016 BRUEGGEGIBRAN FRAGA MD Ot M47.812 SPONDYLOSIS W/O MYELOPATHY OR RADICULOPA 12/06/2016 GIBRAN ANDRES MD Ot S09.90XA UNSPECIFIED INJURY OF HEAD, INITIAL ENCO 12/06/2016 GIBRAN ANDRES MD, Ot W01.0XXA FALL SAME LEV FROM SLIP/TRIP W/O STRIKE 12/06/2016 GIBRAN ANDRES MD Ot Y92.[address] [facility]DC PLACE 12/06/2016 GIBRAN ANDRES MD Ot Y99.8 OTHER EXTERNAL CAUSE STATUS 12/06/2016 GIBRAN ANDRES MD Ot Z79.82 JAIL (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 12/06/2016 GIBRAN ANDRES MD Ot Z79.899 OTHER JAIL (CURRENT) DRUG THERAPY 03/15/2017 PRAVEENA TRIMBLE MD Ot 812.01 FX SURG NCK HUMERUS-CLOS 03/15/2017 PRAVEENA TRIMBLE MD Ot E000.8 OTHER EXTERNAL CAUSE STATUS 03/15/2017 PRAVEENA TRIMBLE MD L Ot E888.9 FALL NOS 03/15/2017 PRAVEENA TRIMBLE MD Ot 812.01 FX SURG NCK HUMERUS-CLOS 03/15/2017 PRAVEENA TRIMBLE MD Ot E000.8 OTHER EXTERNAL CAUSE STATUS 03/15/2017 PRAVEENA TRIMBLE MD Ot E888.9 FALL NOS 03/15/2017 GIBRAN ANDRES MD Ot F03.90 UNSPECIFIED DEMENTIA WITHOUT BEHAVIORAL 03/15/2017 GIBRAN ANDRES MD Ot I10 ESSENTIAL (PRIMARY) HYPERTENSION 03/15/2017 GIBRAN ANDRES MD Ot S01.412A LACERATION W/O FOREIGN BODY OF LEFT ERICA 03/15/2017 GIBRAN ANDRES MD Ot W01.0XXA FALL SAME LEV FROM SLIP/TRIP W/O STRIKE 03/15/2017 GIBRAN ANDRES MD Ot Y92.[address] [facility]DC PLACE 03/15/2017 GIBRAN ANDRES MD Ot Y99.8 OTHER EXTERNAL CAUSE STATUS 03/15/2017 GIBRAN ANDRES MD Ot Z23 ENCOUNTER FOR IMMUNIZATION 03/15/2017 GIBRAN ANDRES MD, Ot Z79.82 JAIL (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 03/15/2017 GIBRAN ANDRES MD, Ot Z79.899 OTHER JAIL (CURRENT) DRUG THERAPY 03/17/2017 GIBRAN ANDRES MD, Ot F03.90 UNSPECIFIED DEMENTIA WITHOUT BEHAVIORAL 03/17/2017 GIBRAN ANDRES MD, Ot I10 ESSENTIAL (PRIMARY) HYPERTENSION 03/17/2017 GIBRAN ANDRES MD, Ot S01.412A LACERATION W/O FOREIGN BODY OF LEFT ERICA 03/17/2017 GIBRAN ANDRES MD, Ot W01.0XXA FALL SAME LEV FROM SLIP/TRIP W/O STRIKE 03/17/2017 GIBRAN ANDRES MD, Ot Y92.[address] [facility] PLACE 03/17/2017 GIBRAN ANDRES MD, Ot Y99.8 OTHER EXTERNAL CAUSE STATUS 03/17/2017 GIBRAN ANDRES MD, Ot Z23 ENCOUNTER FOR IMMUNIZATION 03/17/2017 GIBRAN ANDRES MD, Ot Z79.82 JAIL (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 03/17/2017 GIBRAN ANDRES MD, Ot Z79.899 OTHER JAIL (CURRENT) DRUG THERAPY Procedures There is no data. Results Test Result Range Complete urinalysis with reflex to culture - 12/06/16 14:15 Urine color determination YELLOW NRG Urine clarity determination CLEAR NRG Urine pH measurement by test strip 5 5-9 Specific gravity of urine by test strip 1.030 1.016- 1.022 Urine protein assay by test strip, semi-quantitative NEGATIVE NEGATIVE Urine glucose detection by automated test strip NEGATIVE NEGATIVE Erythrocytes detection in urine sediment by light microscopy 1+ NEGATIVE Urine ketones detection by automated test strip NEGATIVE NEGATIVE Urine nitrite detection by test strip NEGATIVE NEGATIVE Urine total bilirubin detection by test strip NEGATIVE NEGATIVE Urine urobilinogen measurement by automated test strip (mass/volume) NORMAL NORMAL Urine leukocyte esterase detection by dipstick 2+ NEGATIVE Automated urine sediment erythrocyte count by microscopy (number/high power field) RARE NRG Automated urine sediment leukocyte count by microscopy (number/high power field ) [HPF] NRG Bacteria detection in urine sediment by light microscopy MODERATE NRG Squamous epithelial cells detection in urine sediment by light microscopy 10-25 NRG Crystals detection in urine sediment by light microscopy NONE NRG Casts detection in urine sediment by light microscopy NONE NRG Mucus detection in urine sediment by light microscopy SMALL NRG Complete urinalysis with reflex to culture YES NRG Bacterial urine culture - 12/06/16 14:15 URINE CULTURE RESULTS UNLESS REQUESTED NRG Complete blood count (CBC) with automated white blood cell (WBC) differential - 03/15/17 04:36 Blood leukocytes automated count (number/volume) 6.2 10*3/uL 4.3-11.0 Blood erythrocytes automated count (number/volume) 5.00 10*6/uL 4.35-5.85 Venous blood hemoglobin measurement (mass/volume) 12.0 g/dL 11.5-16.0 Blood hematocrit (volume fraction) 38 % 35-52 Automated erythrocyte mean corpuscular volume 76 [foz_us] 80-99 Automated erythrocyte mean corpuscular hemoglobin (mass per erythrocyte) 24 pg 25-34 Automated erythrocyte mean corpuscular hemoglobin concentration measurement ( mass/volume) 32 g/dL 32-36 Automated erythrocyte distribution width ratio 16.3 % 10.0-14.5 Automated blood platelet count (count/volume) 333 10*3/uL 130-400 Automated blood platelet mean volume measurement 9.2 [foz_us] 7.4-10.4 Automated blood neutrophils/100 leukocytes 41 % 42-75 Automated blood lymphocytes/100 leukocytes 46 % 12-44 Blood monocytes/100 leukocytes 12 % 0-12 Automated blood eosinophils/100 leukocytes 2 % 0-10 Automated blood basophils/100 leukocytes 0 % 0-10 Blood neutrophils automated count (number/volume) 2.5 10*3 1.8-7.8 Blood lymphocytes automated count (number/volume) 2.8 10*3 1.0-4.0 Blood monocytes automated count (number/volume) 0.7 10*3 0.0-1.0 Automated eosinophil count 0.1 10*3/uL 0.0-0.3 Automated blood basophil count (count/volume) 0.0 10*3/uL 0.0-0.1 Comprehensive metabolic panel - 03/15/17 04:36 Serum or plasma sodium measurement (moles/volume) 143 mmol/L 135-145 Serum or plasma potassium measurement (moles/volume) 3.5 mmol/L 3.6-5.0 Serum or plasma chloride measurement (moles/volume) 109 mmol/L 98-107 Carbon dioxide 21 mmol/L 21-32 Serum or plasma anion gap determination (moles/volume) 13 mmol/L 5-14 Serum or plasma urea nitrogen measurement (mass/volume) 12 mg/dL 7-18 Serum or plasma creatinine measurement (mass/volume) 0.69 mg/dL 0.60-1.30 Serum or plasma urea nitrogen/creatinine mass ratio 17 NRG Serum or plasma creatinine measurement with calculation of estimated glomerular filtration rate > NRG Serum or plasma glucose measurement (mass/volume) 100 mg/dL 70-105 Serum or plasma calcium measurement (mass/volume) 8.9 mg/dL 8.5-10.1 Serum or plasma total bilirubin measurement (mass/volume) 0.3 mg/dL 0.1-1.0 Serum or plasma alkaline phosphatase measurement (enzymatic activity/volume) 69 U/L 40-136 Serum or plasma aspartate aminotransferase measurement (enzymatic activity/ volume) 19 U/L 5-34 Serum or plasma alanine aminotransferase measurement (enzymatic activity/volume ) 10 U/L 0-55 Serum or plasma protein measurement (mass/volume) 7.0 g/dL 6.4-8.2 Serum or plasma albumin measurement (mass/volume) 4.3 g/dL 3.2-4.5 Complete urinalysis with reflex to culture - 03/15/17 05:09 Urine color determination YELLOW NRG Urine clarity determination CLEAR NRG Urine pH measurement by test strip 7 5-9 Specific gravity of urine by test strip 1.010 1.016- 1.022 Urine protein assay by test strip, semi-quantitative NEGATIVE NEGATIVE Urine glucose detection by automated test strip NEGATIVE NEGATIVE Erythrocytes detection in urine sediment by light microscopy 3+ NEGATIVE Urine ketones detection by automated test strip NEGATIVE NEGATIVE Urine nitrite detection by test strip NEGATIVE NEGATIVE Urine total bilirubin detection by test strip NEGATIVE NEGATIVE Urine urobilinogen measurement by automated test strip (mass/volume) NORMAL NORMAL Urine leukocyte esterase detection by dipstick 1+ NEGATIVE Automated urine sediment erythrocyte count by microscopy (number/high power field) [HPF] NRG Automated urine sediment leukocyte count by microscopy (number/high power field ) RARE NRG Bacteria detection in urine sediment by light microscopy NEGATIVE NRG Squamous epithelial cells detection in urine sediment by light microscopy 2-5 NRG Crystals detection in urine sediment by light microscopy NONE NRG Casts detection in urine sediment by light microscopy NONE NRG Mucus detection in urine sediment by light microscopy NEGATIVE NRG Complete urinalysis with reflex to culture NO NRG Encounters ACCT No. Visit Date/Time Discharge Status Pt. Type Provider Facility Loc./Unit Complaint [id number] 03/15/2017 04:25:00 03/15/2017 06:45:00 DIS Emergency GIBRAN ANDRES MD [facility] ER FALL,ABRASION BELOW L EYE [id number] 12/06/2016 12:15:00 12/06/2016 15:48:00 DIS Emergency GIBRAN ANDRES MD [facility] ER FALL [id number] 04/14/2015 11:58:00 04/14/2015 23:59:59 CLS Outpatient PRAVEENA TRIMBLE MD [facility] RAD FALL/SHOULDER PAIN [id number] 12/13/2014 13:40:00 12/16/2014 11:10:00 DIS Inpatient JAMES ARAUZ, JOSE Rahman [facility] 4TH INFLUENZA A,HYPOKALEMIA, FALLS [id number] 04/15/2015 05:39:57 ACT Document Registration
--- NOTE | 2018-05-08 18:11 | ED Fall/Injury ---
General Chief Complaint: Trauma-Non Activation Stated Complaint: FALL Nursing Triage Note: PT ARRIVED PER EMS PT CO OF FALL, HIT R SIDE OF HEAD ON FLOOR. DENIES LOC. STATES JUST WANTS TO GO BACK HOME Source: patient Exam Limitations: no limitations History of Present Illness Date Seen by Provider: May 08, 2018 Time Seen by Provider: 18:08 Initial Comments to ER per EMS from [place], with reports of a fall. She didn't strike her head during the fall but insists that she did not lose consciousness. She denies any neck pain. She states she has no pain anywhere and just wants to go home.she states that she slipped and fell and did not have any preceding dizziness or lightheadedness. Occurred: just prior to arrival Severity: mild Context: slipped Loss of Consciousness: no loss of consciousness Allergies and Home Medications Allergies Coded Allergies: Sulfa (Sulfonamide Antibiotics) (Verified Allergy, Unknown, 12/13/14) Home Medications Acetaminophen 325 Mg Tab, 650 MG PO Q4H PRN for PAIN, (Reported) TAKES 2 (325MG) TABLETS Amlodipine Besylate 10 Mg Tablet, 10 MG PO DAILY, (Reported) Aspirin 81 Mg Tablet.dr, 81 MG PO DAILY, (Reported) Azithromycin 250 Mg Tab, 0 PO Z-AMBER, (Reported) 2 Tabs 1st day (now), 1 Tab daily START DATE 12-12-14 Cephalexin 500 Mg Capsule, 500 MG PO TID Prescribed by: GIBRAN GONZALEZ on 12/06/16 1541 Citalopram Hydrobromide 10 Mg Tablet, 10 MG PO DAILY, (Reported) Docusate Sodium 100 Mg Cap, 100 MG PO HS, (Reported) Donepezil HCl 10 Mg Tablet, 10 MG PO HS, (Reported) Ezetimibe 10 Mg Tablet, 10 MG PO DAILY, (Reported) Naproxen 500 Mg Tablet, 500 MG PO BID, (Reported) Prednisone 10 Mg Tablet, 10 MG PO DAILY PRN for SHORTNESS OF BREATH Prescribed by: JOSE RAMIREZ on 12/16/14 0915 Tramadol Hcl 50 Mg Tablet, 50 MG PO DAILY PRN for HEADACHE, (Reported) Triamcinolone Acet 15 Gm Cr, TOP BID PRN for IRRITATION, (Reported) Patient Home Medication List Home Medication List Reviewed: Yes Review of Systems Constitutional: see HPI Eyes: No Symptoms Reported Ears, Nose, Mouth, Throat: no symptoms reported Respiratory: no symptoms reported Cardiovascular: no symptoms reported Genitourinary: no symptoms reported Musculoskeletal: no symptoms reported Skin: no symptoms reported Psychiatric/Neurological: No Symptoms Reported Past Cccfhqd-Ggyhzm-Dyuvcv Hx Patient Social History Alcohol Use: Denies Use Recreational Drug Use: No Smoking Status: Never a Smoker Recent Foreign Travel: No Contact w/Someone Who Travel: No Recent Infectious Disease Expo: No Recent Hopitalizations: No Physical Abuse: No Sexual Abuse: No Immunizations Up To Date Tetanus Booster (TDap): Less than 5yrs Date of Pneumonia Vaccine: Jul 21, 2014 Date of Influenza Vaccine: Jul 21, 2014 Past Medical History Surgeries: Yes (ROCKY MASTECTOMY, HYSTERECTOMY) Hysterectomy, Orthopedic Respiratory: No Cardiac: Yes High Cholesterol, Hypertension Neurological: Yes Dementia Reproductive Disorders: No Female Reproductive Disorders: Denies Sexually Transmitted Disease: No HIV/AIDS: No UTI-Chronic Gastrointestinal: Yes Gastroesophageal Reflux, Hiatal Hernia Musculoskeletal: Yes (BROKEN ANKLE) Chronic Back Pain, Fractures Endocrine: No Loss of Vision: Denies Hearing Impairment: Denies Cancer: Yes Breast Psychosocial: Yes Depression Nursing Suicide Risk Score: 0 Integumentary: No Blood Disorders: No Adverse Reaction/Blood Tranf: No Family Medical History Alzheimer's disease G8 SISTER Cataracts G8 SISTER Dementia G8 SISTER Diabetes mellitus 19 MOTHER G8 SISTER Hypertension G8 BROTHER G8 BROTHER G8 SISTER Kidney disease G8 SISTER Neoplasm 19 FATHER Respiratory disorder 19 FATHER No Family History of: AIDS Abdominal aortic aneurysm [place]'s disease Alcoholism Aphasia Arthritis Asthma Cancer of mouth Cardiovascular disease Colon cancer Completed stroke Congenital disease Congenital heart disease Coronary thrombosis Cystic fibrosis Deafness or hearing loss Drug abuse Dysphasia Fibrocystic disease of breast Gastroenteritis Glaucoma Headache disorder Hypercholesterolemia Infertility Myocardial infarction Not obtainable due to adoption Osteoporosis Parkinson's disease Prostate cancer Psychosocial problem Seizure disorder Severe allergy Thyroid disease Tuberculosis Visual disorder Physical Exam Vital Signs Vital Signs - First Documented 05/08/18 17:50 Temp 97.1 Pulse 86 Resp 18 B/P (MAP) 150/71 (97) Pulse Ox 92 Capillary Refill : Less Than 3 Seconds General Appearance: WD/WN, no apparent distress, other (there is no palpablescalp hematoma or depressed skull fracture no epistaxis and no evidence of head or neck injury on inspection) HEENT: PERRL/EOMI, normal ENT inspection Neck: non-tender, full range of motion; No tender lateral, No tender midline Respiratory: normal breath sounds, no respiratory distress, no accessory muscle use Gastrointestinal: normal bowel sounds, non tender, soft Extremities: normal range of motion, non-tender Neurologic/Psychiatric: alert, normal mood/affect, oriented x 3 Skin: normal color, warm/dry Jeff Coma Score Best Eye Response: (4) Open Spontaneously Best Verbal Response: (4) Confused Conversation Best Motor Response: (6) Obeys Commands Jeff Total: 14 Procedures/Interventions Suture Size: 5-0 Progress/Results/Core Measures Results/Orders My Orders Orders - SHANTHI EDWARDS APRN Ct Head/Cervical Spine Wo (05/08/18 18:02) Vital Signs/I&O 05/08/18 17:50 Temp 97.1 Pulse 86 Resp 18 B/P (MAP) 150/71 (97) Pulse Ox 92 Blood Pressure Mean: 97 Departure Impression Primary Impression: Fall on same level Disposition: 01 HOME, SELF-CARE Condition: Stable Departure-Patient Inst. Decision time for Depature: 18:10 Referrals: PRAVEENA TRIMBLE MD (PCP/Family) Primary Care Physician Patient Instructions: Preventing Falls in the Older Adult Add. Discharge Instructions: 1. Return to ER for any severe headache, worsening confusion, new pains, persistent vomiting.All discharge instructions reviewed with patient and/or family. Voiced understanding. SHANTHI EDWARDS APRN May 08, 2018 18:11
--- NOTE | 2018-05-08 18:33 | Diagnostic Imaging Report ---
PROCEDURE: CT head and CT cervical spine without contrast. TECHNIQUE: Multiple contiguous axial images were obtained through the brain and cervical spine without the use of intravenous contrast. Sagittal and coronal reformations through the cervical spine were then performed. INDICATION: Fall with head and neck injury. COMPARISON: Comparison is made with prior CT from 03/15/2017. FINDINGS: CT HEAD: The ventricles and sulci are prominent consistent with the patient's age. Moderate periventricular hypodensity is again noted consistent with senescent change. No sulcal effacement is identified. There is no midline shift. No acute intra-axial or extra-axial hemorrhage is detected. The cisterns are patent. The visualized paranasal sinuses are clear. IMPRESSION: No acute intracranial process is detected. CT CERVICAL SPINE: Curvature and alignment is stable. There is multilevel degenerative disc disease with variable disc space narrowing and marginal spurring. The prevertebral tissues are normal. No fractures are identified. The odontoid appears intact. IMPRESSION: Cervical spondylosis. No acute bony abnormality is detected. Dictated by: Dictated on workstation # [id number]
[2018-05-08 18:46] VITALS: BP 150/71
== END 2018-05-08 18:46 | disposition home or self-care (01) ==
LOC: EDUNIT# 17:50 → ER 17:51
DX: S09.90XA Unspecified injury of head, initial encounter (principal); E78.00 Pure hypercholesterolemia, unspecified; I10 Essential (primary) hypertension; F03.90 Unspecified dementia, unspecified severity, without behavioral disturbance, psychotic disturbance, mood disturbance, and anxiety; F32.9 Major depressive disorder, single episode, unspecified; K21.9 Gastro-esophageal reflux disease without esophagitis; Z85.3 Personal history of malignant neoplasm of breast; Z87.81 Personal history of (healed) traumatic fracture; Z90.710 Acquired absence of both cervix and uterus; Z79.82 Long term (current) use of aspirin; Z79.52 Long term (current) use of systemic steroids; Z88.2 Allergy status to sulfonamides
CPT/HCPCS: 70450; 72125

== ENCOUNTER 2018-07-27 07:39 | Emergency (ER) | payer MEDICARE, OTHER, MEDICAID ==
[~2018-07-27] VITALS: Ht 152.4 cm; Wt 63.5 kg
--- OUTSIDE RECORDS SUMMARY | 2018-07-27 07:44 | XMS REPORT | Continuity of Care Document ---
Author Author [facility] Organization [facility] Address Unknown Phone Unavailable Allergies Active Description Code Type Severity Reaction Onset Reported/Identified Relationship to Patient Clinical Status Yes Sulfa (Sulfonamide Antibiotics) [id number] Drug Allergy Unknown N/A 2014 Medications There is no data. Problems Date Dx Coded Attending Type Code Diagnosis Diagnosed By 12/16/2014 JAMES ARAUZ, JOSE Rahman Ot 272.0 PURE HYPERCHOLESTEROLEM 12/16/2014 JAMES ARAUZ, JOSE Rahman Ot 276.8 HYPOPOTASSEMIA 12/16/2014 JAMES ARAUZ, JOSE Rahman Ot 294.20 DEMENTIA, UNSPECIFIED, WITHOUT BEHAVIORA 12/16/2014 JAMES ARAUZ, JOSE Rahman Ot 401.9 HYPERTENSION NOS 12/16/2014 JAMES ARAUZ, JOSE Rahman Ot 487.1 FLU W RESP MANIFEST NEC 12/16/2014 JOSE RAMIREZ MD Ot 530.81 ESOPHAGEAL REFLUX 12/16/2014 JOSE RAMIREZ [...] ANDRES MD Ot Y92.[address] IN [facility] PLACE 12/06/2016 GIBRAN ANDRES MD Ot Y99.8 OTHER EXTERNAL CAUSE STATUS 12/06/2016 GIBRAN ANDRES MD Ot Z79.82 INTERMEDIATE (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 12/06/2016 GIBRAN ANDRES MD Ot Z79.899 OTHER INTERMEDIATE (CURRENT) DRUG THERAPY 03/15/2017 PRAVEENA TRIMBLE MD [...] ANDRES MD Ot Y92.[address] [facility] [address] 03/15/2017 GIBRAN ANDRES MD Ot Y99.8 OTHER EXTERNAL CAUSE STATUS 03/15/2017 GIBRAN ANDRES MD Ot Z23 ENCOUNTER FOR IMMUNIZATION 03/15/2017 GIBRAN ANDRES MD Ot Z79.82 INTERMEDIATE (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 03/15/2017 GIBRAN ANDRES MD Ot Z79.899 OTHER INTERMEDIATE (CURRENT) DRUG THERAPY 03/17/2017 GIBRAN ANDRES MD Ot F03.90 UNSPECIFIED DEMENTIA WITHOUT BEHAVIORAL 03/17/2017 GIBRAN ANDRES MD, Ot I10 ESSENTIAL (PRIMARY) HYPERTENSION 03/17/2017 GIBRAN ANDRES MD Ot S01.412A LACERATION W/O FOREIGN BODY OF LEFT ERICA 03/17/2017 GIBRAN ANDRES MD Ot W01.0XXA FALL SAME LEV FROM SLIP/TRIP W/O STRIKE 03/17/2017 GIBRAN ANDRES MD Ot Y92.[address] [facility]ACE 03/17/2017 GIBRAN ANDRES MD Ot Y99.8 OTHER EXTERNAL CAUSE STATUS 03/17/2017 GIBRAN ANDRES MD Ot Z23 ENCOUNTER FOR IMMUNIZATION 03/17/2017 GIBRAN ANDRES MD, Ot Z79.82 INTERMEDIATE (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 03/17/2017 GIBRAN ANDRES MD Ot Z79.899 OTHER INTERMEDIATE (CURRENT) DRUG THERAPY 05/08/2018 SHANTHI EDWARDS APRN Ot E78.00 PURE HYPERCHOLESTEROLEMIA, UNSPECIFIED 05/08/2018 SHANTHI EDWARDS APRN Ot F03.90 UNSPECIFIED DEMENTIA WITHOUT BEHAVIORAL 05/08/2018 SHANTHI EDWARDS APRN Ot F32.9 MAJOR DEPRESSIVE DISORDER, SINGLE EPISOD 05/08/2018 SHANTHI EDWARDS APRN Ot I10 ESSENTIAL (PRIMARY) HYPERTENSION 05/08/2018 SHANTHI EDWARDS APRN Ot K21.9 GASTRO-ESOPHAGEAL REFLUX DISEASE WITHOUT 05/08/2018 SHANTHI EDWARDS APRN Ot S09.90XA UNSPECIFIED INJURY OF HEAD, INITIAL ENCO 05/08/2018 SHANTHI EDWARDS APRN Ot Z79.52 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 CREDIT OFFICER (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 STER 05/08/2018 SHANTHI EDWARDS APRN Ot Z79.82 INTERMEDIATE (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 05/08/2018 SHANTHI EDWARDS APRN Ot Z85.3 PERSONAL HISTORY OF MALIGNANT NEOPLASM O 05/08/2018 SHANTHI EDWARDS APRN Ot Z87.81 PERSONAL HISTORY OF (HEALED) TRAUMATIC F 05/08/2018 SHANTHI EDWARDS APRN Ot Z88.2 ALLERGY STATUS TO SULFONAMIDES STATUS 05/08/2018 SHANTHI EDWARDS APRN Ot Z90.710 ACQUIRED ABSENCE OF BOTH CERVIX AND UTER 05/10/2018 SHANTHI EDWARDS APRN Ot E78.00 PURE HYPERCHOLESTEROLEMIA, UNSPECIFIED 05/10/2018 SHANTHI EDWARDS APRN Ot F03.90 UNSPECIFIED DEMENTIA WITHOUT BEHAVIORAL 05/10/2018 SHANTHI EDWARDS APRN Ot F32.9 MAJOR DEPRESSIVE DISORDER, SINGLE EPISOD 05/10/2018 SHANTHI EDWARDS APRN Ot I10 ESSENTIAL (PRIMARY) HYPERTENSION 05/10/2018 SHANTHI EDWARDS APRN Ot K21.9 GASTRO-ESOPHAGEAL REFLUX DISEASE WITHOUT 05/10/2018 SHANTHI EDWARDS APRN Ot S09.90XA UNSPECIFIED INJURY OF HEAD, INITIAL ENCO 05/10/2018 SHANTHI EDWARDS APRN Ot Z79.52 INTERMEDIATE (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 STER 05/10/2018 SHANTHI EDWARDS APRN Ot Z79.82 COMMERCIAL CREDIT OFFICER (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 05/10/2018 SHANTHI EDWARDS APRN Ot Z85.3 PERSONAL HISTORY OF MALIGNANT NEOPLASM O 05/10/2018 SHANTHI EDWARDS APRN Ot Z87.81 PERSONAL HISTORY OF (HEALED) TRAUMATIC F 05/10/2018 SHANTHI EDWARDS APRN Ot Z88.2 ALLERGY STATUS TO SULFONAMIDES STATUS 05/10/2018 SHANTHI EDWARDS APRN Ot Z90.710 ACQUIRED ABSENCE OF BOTH CERVIX AND UTER Procedures There is no data. Results Test [...] Status Pt. Type Provider Facility Loc./Unit Complaint [id number] 05/08/2018 17:51:00 05/08/2018 18:46:00 DIS Emergency SHANTHI EDWARDS APRN [facility] ER FALL [id number] 03/15/2017 04:25:00 03/15/2017 06:45:00 DIS Emergency GIBRAN ANDRES MD [facility] ER FALL,ABRASION BELOW L EYE [id number] 12/06/2016 12:15:00 12/06/2016 15:48:00 DIS Emergency GIBRAN ANDRES MD [facility] ER FALL [id number] 04/14/2015 11:58:00 04/14/2015 23:59:59 CLS Outpatient PRAVEENA TRIMBLE MD [facility] RAD FALL/SHOULDER PAIN [id number] 12/13/2014 13:40:00 12/16/2014 11:10:00 DIS Inpatient JAMES ARAUZ, JOSE Rahman [facility] 4TH INFLUENZA A,HYPOKALEMIA, FALLS [id number] 04/15/2015 05:39:57 ACT Document Registration
--- NOTE | 2018-07-27 07:59 | ED Fall/Injury ---
General Chief Complaint: Trauma-Non Activation Stated Complaint: FALL-RT ARM PAIN Source: EMS, [facility] Exam Limitations: other (PT WITH DEMENTIA AND IS UNABLE TO GIVE ANY HISTORY) History of Present Illness Date Seen by Provider: Jul 27, 2018 Time Seen by Provider: 07:34 Initial Comments PT ARRIVES VIA EMS [facility] PT HAD UNWITNESSED FALL OUT OF BED--WAS FOUND THIS MORNING BY STAFF, OFF THE BED , BUT WITH HER ARM STILL WEDGED BETWEEN THE BED AND THE BED RAIL--ESSENTIALLY HANGING FROM THE BED WITH HER ARM IS UNKNOWN HOW LONG AGO THIS OCCURRED C/O RIGHT ARM PAIN NO OTHER INFORMATION IS OBTAINABLE PT HAS BEEN INCONTINENT OF URINE PCP: DR. TRIMBLE Allergies and Home Medications Allergies Coded Allergies: Sulfa (Sulfonamide Antibiotics) (Verified Allergy, Unknown, 12/13/14) Home Medications Acetaminophen 325 Mg Tab, 650 MG PO Q4H PRN for PAIN, (Reported) TAKES 2 (325MG) TABLETS Amlodipine Besylate 10 Mg Tablet, 10 MG PO DAILY, (Reported) Aspirin 81 Mg Tablet.dr, 81 MG PO DAILY, (Reported) Azithromycin 250 Mg Tab, 0 PO Z-AMBER, (Reported) 2 Tabs 1st day (now), 1 Tab daily START DATE 12-12-14 Cephalexin 500 Mg Capsule, 500 MG PO TID Prescribed by: GIBRAN GONZALEZ on 12/06/16 1541 Citalopram Hydrobromide 10 Mg Tablet, 10 MG PO DAILY, (Reported) Docusate Sodium 100 Mg Cap, 100 MG PO HS, (Reported) Donepezil HCl 10 Mg Tablet, 10 MG PO HS, (Reported) Ezetimibe 10 Mg Tablet, 10 MG PO DAILY, (Reported) Naproxen 500 Mg Tablet, 500 MG PO BID, (Reported) Prednisone 10 Mg Tablet, 10 MG PO DAILY PRN for SHORTNESS OF BREATH Prescribed by: JOSE RAMIREZ on 12/16/14 0915 Tramadol Hcl 50 Mg Tablet, 50 MG PO DAILY PRN for HEADACHE, (Reported) Triamcinolone Acet 15 Gm Cr, TOP BID PRN for IRRITATION, (Reported) Patient Home Medication List Home Medication List Reviewed: Yes Review of Systems Review of Systems Constitutional: other (PER HPI) Musculoskeletal: see HPI Past Bygvasp-Nofbyi-Xpluml Hx Patient Social History Recent Hopitalizations: No Immunizations Up To Date Tetanus Booster (TDap): Less than 5yrs Date of Pneumonia Vaccine: Jul 21, 2014 Date of Influenza Vaccine: Jul 21, 2014 Past Medical History Surgeries: Yes (ROCKY MASTECTOMY, HYSTERECTOMY) Breast, Hysterectomy, Orthopedic Respiratory: No Cardiac: Yes High Cholesterol, Hypertension Neurological: Yes Dementia Reproductive Disorders: No Female Reproductive Disorders: Denies 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, 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 Sexually Transmitted Disease: No HIV/AIDS: No UTI-Chronic Gastrointestinal: Yes Gastroesophageal Reflux, Hiatal Hernia Musculoskeletal: Yes (BROKEN ANKLE) Chronic Back Pain, Fractures Endocrine: No Loss of Vision: Denies Hearing Impairment: Denies Cancer: Yes Breast What Type of Treatment Did You: Surgical Intervention Psychosocial: Yes Depression Integumentary: No Blood Disorders: No Adverse Reaction/Blood Tranf: No Family Medical History Alzheimer's disease G8 SISTER Cataracts G8 SISTER Dementia G8 SISTER Diabetes mellitus 19 MOTHER G8 SISTER Hypertension G8 BROTHER G8 BROTHER G8 SISTER Kidney disease G8 SISTER Neoplasm 19 FATHER Respiratory disorder 19 FATHER No Family History of: AIDS Abdominal aortic aneurysm [place]'s disease Alcoholism Aphasia Arthritis Asthma Cancer of mouth Cardiovascular disease Colon cancer Completed stroke Congenital disease Congenital heart disease Coronary thrombosis Cystic fibrosis Deafness or hearing loss Drug abuse Dysphasia Fibrocystic disease of breast Gastroenteritis Glaucoma Headache disorder Hypercholesterolemia Infertility Myocardial infarction Not obtainable due to adoption Osteoporosis Parkinson's disease Prostate cancer Psychosocial problem Seizure disorder Severe allergy Thyroid disease Tuberculosis Visual disorder Physical Exam Vital Signs Vital Signs - First Documented 07/27/18 07:39 Temp 98.0 Pulse 78 Resp 18 B/P (MAP) 177/65 (102) Pulse Ox 93 O2 Delivery Room Air Capillary Refill : Height, Weight, BMI Height: 5'2.00" Weight: 120lbs. 9.0oz. 54.214295vx; BMI Method:Stated General Appearance: WD/WN, no apparent distress HEENT: PERRL/EOMI Neck: non-tender, full range of motion Cardiovascular: normal peripheral pulses, regular rate, rhythm, no murmur Respiratory: chest non-tender, normal breath sounds, no respiratory distress, no accessory muscle use Gastrointestinal: normal bowel sounds, non tender, soft Back: normal inspection, no CVA tenderness, no vertebral tenderness Extremities: other (RIGHT AC AREA WITH ERYTHEMA AND BLISTERING. LIMITED ROM OF RIGHT ARM AT ELBOW AND SHOULDER. HAS DIFFUSE TENDERNESS FROM RIGHT SHOULDER TO WRIST. DISTAL NEUROVASCULAR INTACT) Neurologic/Psychiatric: matting press tender II-XII nml as tested, no motor/sensory deficits, alert, normal mood/affect, disoriented x 3 Skin: normal color, warm/dry, other (ERYTHEMA AND BLISTERING TO RIGHT AC) Procedures/Interventions Suture Size: 5-0 Progress/Results/Core Measures Results/Orders Lab Results Laboratory Tests Test 07/27/18 07:57 Range/Units Urine Color YELLOW Urine Clarity CLEAR Urine pH 5 5-9 Urine Specific [place] 1.025 H 1.016-1.022 Urine Protein 3+ H NEGATIVE Urine Glucose (UA) 3+ H NEGATIVE Urine Ketones 4+ H NEGATIVE Urine Nitrite POSITIVE H NEGATIVE Urine Bilirubin NEGATIVE NEGATIVE Urine Urobilinogen 1 NORMAL MG/DL Urine Leukocyte Esterase 1+ H NEGATIVE Urine RBC (Auto) 5+ H NEGATIVE Urine RBC 2-5 H /HPF Urine WBC 10-25 H /HPF Urine Crystals PRESENT H /LPF Urine Amorphous Sediment FEW MICKY URATES H /LPF Urine Bacteria MODERATE H /HPF Urine Casts NONE /LPF Urine Mucus NEGATIVE /LPF Urine Culture Indicated YES My Orders Orders - CHARLOTTE CRYSTAL DO Chest 1 View, Ap/Pa Only (07/27/18 07:44) Forearm, Right, 2 Views (07/27/18 07:44) Humerus, Right, 2 Views (07/27/18 07:44) Pelvis (07/27/18 07:44) Straight Cath For Spec.-Adult (07/27/18 07:52) Ua Culture If Indicated (07/27/18 07:52) Urine Culture (07/27/18 07:57) Vital Signs/I&O 07/27/18 07:39 Temp 98.0 Pulse 78 Resp 18 B/P (MAP) 177/65 (102) Pulse Ox 93 O2 Delivery Room Air Diagnostic Imaging Comments XRAYS--ALL PER RADIOLOGIST REPORT @ 0827 PELVIS--NO ACUTE PROCESS CXR--NO ACUTE PROCESS RIGHT HUMERUS--NO ACUTE PROCESS, OLD HEALED FX RIGHT FOREARM--NO ACUTE PROCESS, OLD HEALED FX Reviewed: Reviewed by Me Departure Communication (Admissions) Family Conversation DAUGHTER IS HERE, SHE IS AGREEABLE TO JUST TYLENOL AND MOTRIN FOR PAIN AND NOT ANYTHING STRONGER AT THIS TIME. Impression Primary Impression: Fall from bed Additional Impressions: RIGHT ARM STRAIN UTI (urinary tract infection) Disposition: 03 XFER SNF Condition: Stable Departure-Patient Inst. Referrals: PRAVEENA TRIMBLE MD (PCP/Family) Primary Care Physician Patient Instructions: Muscle Strain (DC), Preventing Falls in the Older Adult, Sprain (DC) Add. Discharge Instructions: WEAR SLING NEEDED FOR COMFORT MOTRIN 400 MG EVERY 4-6 HOURS NEEDED FOR PAIN, MAY TAKE IN ADDITION TO TYLENOL ICE TO AREA AT 20 MINUTE INTERVALS FOLLOW UP WITH DR. TRIMBLE FOR FURTHER ORDERS All discharge instructions reviewed with patient and/or family. Voiced understanding. Scripts Nitrofurantoin Monohyd/M-Cryst (Macrobid 100 mg Capsule) 100 Mg Capsule 100 MG PO BID, #20 CAP Prov: CHARLOTTE CRYSTAL DO 07/27/18 CHARLOTTE CRYSTAL DO Jul 27, 2018 07:59
[2018-07-27 08:04] LABS: BILIRUBIN,URINE NEGATIVE (NEGATIVE); CLARITY,URINE CLEAR; COLOR,URINE YELLOW; GLUCOSE, URINE (UA) 3+ (NEGATIVE); KETONES,URINE 4+ (NEGATIVE); LEUKOCYTE ESTERASE ,URINE 1+ (NEGATIVE); NITRITE,URINE POSITIVE (NEGATIVE); PH,URINE 5 (5-9); PROTEIN,URINE 3+ (NEGATIVE); UROBILINOGEN,URINE 1 MG/DL (NORMAL)
--- NOTE | 2018-07-27 08:15 | Diagnostic Imaging Report ---
INDICATION: Fall. TIME OF EXAM: 8:23 AM Comparison is made with prior chest radiograph from 12/13/2014. FINDINGS: The heart size is stable. There is linear atelectasis or scarring in both lung bases. Right hemidiaphragm is mildly elevated which appears chronic. No infiltrate is seen. No effusion or pneumothorax is detected. IMPRESSION: Bibasilar atelectasis or scarring. No other significant abnormality is detected. Dictated by: Dictated on workstation # [id number]
--- NOTE | 2018-07-27 08:22 | Diagnostic Imaging Report ---
INDICATION: Pelvic pain post fall. AP pelvis obtained at 8:24 a.m. FINDINGS: There is osteopenia. There is moderate degenerative change of the hip joints on both sides with joint space narrowing and subchondral sclerosis of the acetabula. There is no definite acute fracture or acute bony abnormality. There is mild degenerative change of the SI joints. IMPRESSION: Chronic finding as above with no acute abnormality seen. Dictated by: Dictated on workstation # [id number]
--- NOTE | 2018-07-27 08:22 | Diagnostic Imaging Report ---
INDICATION: Fall with right arm pain AP and lateral views of the right humerus are obtained Comparison is made to prior study of 04/14/2015. There is a chronic deformity of the humeral neck and head with similar alignment to the previous study of 04/14/2015. No definite acute fracture is seen. There is no dislocation. IMPRESSION: Chronic fracture deformity of right humeral head and neck appearing similar in alignment to 04/14/2015. No new fracture is evident. Dictated by: Dictated on workstation # [id number]
[2018-07-27 08:23] LABS: AMORPHOUS SEDIMENT,UR FEW AMOR URATES /LPF; BACTERIA,URINE MODERATE /HPF
--- NOTE | 2018-07-27 08:23 | Diagnostic Imaging Report ---
INDICATION: Fall with right arm pain AP and lateral views of the right forearm are obtained There is no acute fracture or acute bony abnormality seen. Previous orthopedic hardware in the distal radius appears in good alignment with no acute abnormality. IMPRESSION: Postsurgical changes in distal radius. No acute fracture or acute bony abnormality. Dictated by: Dictated on workstation # [id number]
[2018-07-27] MEDS ORDERED: NITR-65 PO (08:33)
[2018-07-27 09:47] VITALS: BP 167/75
== END 2018-07-27 09:47 | disposition home or self-care (01) ==
LOC: EDUNIT# 07:39 → ER 07:40
DX: S46.911A Strain of unspecified muscle, fascia and tendon at shoulder and upper arm level, right arm, initial encounter (principal); N39.0 Urinary tract infection, site not specified; M79.601 Pain in right arm; R10.2 Pelvic and perineal pain; J98.11 Atelectasis; E78.00 Pure hypercholesterolemia, unspecified; I10 Essential (primary) hypertension; F03.90 Unspecified dementia, unspecified severity, without behavioral disturbance, psychotic disturbance, mood disturbance, and anxiety; F32.9 Major depressive disorder, single episode, unspecified; K21.9 Gastro-esophageal reflux disease without esophagitis; Z82.49 Family history of ischemic heart disease and other diseases of the circulatory system; Z85.3 Personal history of malignant neoplasm of breast; Z87.440 Personal history of urinary (tract) infections; Z87.19 Personal history of other diseases of the digestive system; Z88.2 Allergy status to sulfonamides; Z79.82 Long term (current) use of aspirin; Z79.52 Long term (current) use of systemic steroids; Z90.710 Acquired absence of both cervix and uterus; Z90.13 Acquired absence of bilateral breasts and nipples; W06.XXXA Fall from bed, initial encounter
CPT/HCPCS: 51701; 71045; 72170; 73060; 73090; 81000; 87077; 87088; 87186

== ENCOUNTER 2019-01-18 17:30 | Emergency (ER) | payer MEDICARE, OTHER, MEDICAID ==
[~2019-01-18] VITALS: Ht 162.6 cm; Wt 68.0 kg
[~2019-01-18 17:30] MED LIST changes: +NITR-65 PO
[2019-01-18 17:53] LABS: BASOPHILS % (AUTO) 0 % (0-10); EOSINOPHILS % (AUTO) 0 % (0-10); HEMATOCRIT 45 % (35-52); HEMOGLOBIN 15.6 G/DL (11.5-16.0); LYMPHOCYTES # (AUTO) 0.6 X 10^3 (1.0-4.0); LYMPHOCYTES % (AUTO) 6 % (12-44); MEAN CORPUSCULAR HEMOGLOBIN 31 PG (25-34); MEAN CORPUSCULAR HGB CONC 35 G/DL (32-36); MEAN CORPUSCULAR VOLUME 87 FL (80-99); MONOCYTES # (AUTO) 0.9 X 10^3 (0.0-1.0); MONOCYTES % (AUTO) 8 % (0-12); NEUTROPHILS # (AUTO) 8.9 X 10^3 (1.8-7.8); NEUTROPHILS % (AUTO) 86 % (42-75); PLATELET COUNT 221 10^3/uL (130-400); RED CELL DISTRIBUTION WIDTH 13.9 % (10.0-14.5); WHITE BLOOD COUNT 10.4 10^3/uL (4.3-11.0)
[2019-01-18 18:05] LABS: ALANINE AMINOTRANSFERASE 12 U/L (0-55); ALBUMIN 4.4 GM/DL (3.2-4.5); ALKALINE PHOSPHATASE 72 U/L (40-136); BILIRUBIN,TOTAL 0.6 MG/DL (0.1-1.0); BUN/CREATININE RATIO 22; CALCIUM 9.2 MG/DL (8.5-10.1); CARBON DIOXIDE 21 MMOL/L (21-32); CHLORIDE 107 MMOL/L (98-107); CREATININE SERUM 0.79 MG/DL (0.60-1.30); GFR ESTIMATED > 60; GLUCOSE 164 MG/DL (70-105); POTASSIUM 3.7 MMOL/L (3.6-5.0); SODIUM 141 MMOL/L (135-145); TOTAL PROTEIN 7.3 GM/DL (6.4-8.2)
[2019-01-18 18:20] LABS: BAND NEUTROPHILS 0 %; BASOPHILS % (MANUAL) 0 %; EOSINOPHILS % (MANUAL) 0 %; LYMPHOCYTES % (MANUAL) 6 %; MONOCYTES % (MANUAL) 6 %; NEUTROPHILS % (MANUAL) 88 %; RBC MORPH NORMAL
--- NOTE | 2019-01-18 18:20 | NUR ---
Patient returned from CT/radiology and is resting comfortably at this time. She remains responsive to painful stimuli only but is able to maintain her airway.
--- NOTE | 2019-01-18 18:24 | Diagnostic Imaging Report ---
PROCEDURE: CT head without contrast. TECHNIQUE: Multiple contiguous axial images were obtained through the brain without the use of intravenous contrast. INDICATION: Fever and lethargy. FINDINGS: There is prominence of the ventricles and sulci. There is no hydrocephalus or cerebral edema. There is no midline shift or mass-effect. There is no intracranial mass, hemorrhage, or extra-axial fluid collection. There is some diffuse decreased attenuation of the periventricular white matter which is nonspecific. The visualized paranasal sinuses and mastoid air cells are clear. There are no regional areas of decreased attenuation appreciated to suggest an acute CVA. IMPRESSION: 1. No acute intracranial process. 2. Age-appropriate atrophy. 3. Decreased attenuation of the periventricular white matter which is nonspecific, however, likely reflects senescent change and/or chronic small vessel ischemic disease. Dictated by: Dictated on workstation # [id number]
--- NOTE | 2019-01-18 18:29 | Diagnostic Imaging Report ---
INDICATION: Hypoxia and shortness of breath. FINDINGS: There is cardiomegaly. There is some venous congestion. There is some bibasilar atelectasis and/or pneumonitis. There is no pleural effusion or pneumothorax. The mediastinum is unremarkable. IMPRESSION: Bibasilar atelectasis and/or pneumonitis. Cardiomegaly and mild central pulmonary venous congestion. Dictated by: Dictated on workstation # [id number]
--- NOTE | 2019-01-18 18:45 | NUR ---
Dr. Doyle at the bedside assessing that patient. Pt. daughter also brought to the bedside and was informed of plan of care.
--- NOTE | 2019-01-18 18:47 | ED General ---
General Chief Complaint: Altered Mental Status Stated Complaint: FEVER/LETHARGIC Nursing Triage Note: EMS advised they were called secondary to the patient vomiting. Upon thier arrival the patient was febrile with a SPO2 of 84% on room air and minimally responsive. Pt. withdraws from painful stimuli and is maintaining her own airway at this time. SPO2 is 95% via NRB. Nursing Sepsis Screen: Possible Severe Sepsis Risk Source of Information: Patient, EMS, Family, Correction Records Exam Limitations: Other (clinical condition.) History of Present Illness Date Seen by Provider: Jan 18, 2019 Time Seen by Provider: 18:27 Initial Comments Patient presents to ER by EMS from [facility] with chief complaint that at dinnertime she vomited and was unresponsive. Her daughter who accompanies her says that earlier this morning when she went to visit she was being very tired but said she felt okay and then staff called and told her later in the day that she did not want to get up and walk around. At baseline the patient is verbal, walks with a walker and has some baseline dementia. Apparently the patient had a fever 103 today. They are working on getting some urine from her and some Keflex was called out by primary care which she received 1 dose according to the record this morning. Allergies and Home Medications Allergies Coded Allergies: Sulfa (Sulfonamide Antibiotics) (Verified Allergy, Unknown, 12/13/14) Home Medications Acetaminophen 325 Mg Tab, 650 MG PO Q4H PRN for PAIN, (Reported) TAKES 2 (325MG) TABLETS Amlodipine Besylate 10 Mg Tablet, 10 MG PO DAILY, (Reported) Aspirin 81 Mg Tablet.dr, 81 MG PO DAILY, (Reported) Azithromycin 250 Mg Tab, 0 PO Z-AMBER, (Reported) 2 Tabs 1st day (now), 1 Tab daily START DATE 12-12-14 Cephalexin 500 Mg Capsule, 500 MG PO TID Prescribed by: GIBRAN GONZALEZ on 12/06/16 1549 Citalopram Hydrobromide 10 Mg Tablet, 10 MG PO DAILY, (Reported) Docusate Sodium 100 Mg Cap, 100 MG PO HS, (Reported) Donepezil HCl 10 Mg Tablet, 10 MG PO HS, (Reported) Ezetimibe 10 Mg Tablet, 10 MG PO DAILY, (Reported) Naproxen 500 Mg Tablet, 500 MG PO BID, (Reported) Nitrofurantoin Monohyd/M-Cryst 100 Mg Capsule, 100 MG PO BID Prescribed by: CHARLOTTE CRYSTAL on 07/27/18 0833 Prednisone 10 Mg Tablet, 10 MG PO DAILY PRN for SHORTNESS OF BREATH Prescribed by: JOSE RAMIREZ on 12/16/14 0915 Tramadol Hcl 50 Mg Tablet, 50 MG PO DAILY PRN for HEADACHE, (Reported) Triamcinolone Acet 15 Gm Cr, TOP BID PRN for IRRITATION, (Reported) Patient Home Medication List Home Medication List Reviewed: Yes Review of Systems Review of Systems Constitutional: see HPI (history provided by daughter, staff at the residential, EMS. The patient is obtunded and does not provide any meaningful verbal history.); No chills; fever, malaise, weakness EENTM: No ear discharge, No ear pain Respiratory: No cough, No phlegm Cardiovascular: No chest pain, No edema Gastrointestinal: No abdominal pain, No constipation, No diarrhea; nausea, vomiting Genitourinary: No discharge; dysuria Musculoskeletal: No back pain, No joint pain Past Qonzref-Oauvrt-Pkpjmq Hx Patient Social History Alcohol Use: Denies Use Recreational Drug Use: No Smoking Status: Unknown if Ever Smoked Recent Foreign Travel: No Contact w/Someone Who Travel: No Recent Infectious Disease Expo: No Recent Hopitalizations: No Immunizations Up To Date Tetanus Booster (TDap): Less than 5yrs Date of Pneumonia Vaccine: Jul 21, 2014 Date of Influenza Vaccine: Jul 21, 2014 Seasonal Allergies Seasonal Allergies: No Past Medical History Surgeries: Yes (ROCKY MASTECTOMY, HYSTERECTOMY) Breast, Hysterectomy, Orthopedic Respiratory: No Cardiac: Yes High Cholesterol, Hypertension Neurological: Yes Dementia Reproductive Disorders: No Female Reproductive Disorders: Denies [employer] History: Hysterectomy, Menopausal Sexually Transmitted Disease: No HIV/AIDS: No UTI-Chronic Gastrointestinal: Yes Gastroesophageal Reflux, Hiatal Hernia Musculoskeletal: Yes (BROKEN ANKLE) Chronic Back Pain, Fractures Endocrine: No Loss of Vision: Denies Hearing Impairment: Denies Cancer: Yes Breast What Type of Treatment Did You: Surgical Intervention Psychosocial: Yes Depression Integumentary: No Blood Disorders: No Adverse Reaction/Blood Tranf: No Family Medical History Alzheimer's disease G8 SISTER Cataracts G8 SISTER Dementia G8 SISTER Diabetes mellitus 19 MOTHER G8 SISTER Hypertension G8 BROTHER G8 BROTHER G8 SISTER Kidney disease G8 SISTER Neoplasm 19 FATHER Respiratory disorder 19 FATHER No Family History of: AIDS Abdominal aortic aneurysm Webster's disease Alcoholism Aphasia Arthritis Asthma Cancer of mouth Cardiovascular disease Colon cancer Completed stroke Congenital disease Congenital heart disease Coronary thrombosis Cystic fibrosis Deafness or hearing loss Drug abuse Dysphasia Fibrocystic disease of breast Gastroenteritis Glaucoma Headache disorder Hypercholesterolemia Infertility Myocardial infarction Not obtainable due to adoption Osteoporosis Parkinson's disease Prostate cancer Psychosocial problem Seizure disorder Severe allergy Thyroid disease Tuberculosis Visual disorder Physical Exam-Suspected Sepsis Physical Exam Vital Signs Vital Signs - First Documented 01/18/19 01/18/19 17:34 20:49 Temp 102.9 Pulse 115 Resp 14 B/P (MAP) 156/80 (105) Pulse Ox 94 O2 Delivery Non Rebreather O2 Flow Rate 3.00 Capillary Refill : Less Than 3 Seconds Blood Pressure Mean: 105 Height, Weight, BMI Height: 5'4.00" Weight: 150lbs. 9.0oz. [id number]; BMI Method:Estimated General Appearance: WD/WN, Mild Distress Eyes: Bilateral Eye Normal Inspection, Bilateral Eye PERRL, Bilateral Eye EOMI HEENT: PERRL/EOMI, TMs Normal, Normal ENT Inspection, Pharynx Normal, Moist Mucous Membranes Neck: Full Range of Motion, Normal Inspection, Non Tender Respiratory: Chest Non Tender, No Accessory Muscle Use, No Respiratory Distress , Rhonci; No Wheezing Cardiovascular: Regular Rate, Rhythm, Normal Peripheral Pulses (heart rate in the 90s), Other (trace bilateral pedal edema right worse than left.) Gastrointestinal: Normal Bowel Sounds, Non Tender, Soft Extremity: Normal Capillary Refill, Non Tender, No Calf Tenderness, Pedal Edema (trace right worse than left), Other (negative for erythema, joint effusion or tenderness on palpation of the right ankle) Neurologic/Psychiatric: Other (moves all 4 extremities and withdraws from pain. GCS 9) Skin: normal color, warm/dry Focused Exam Lactate Level 01/18/19 17:39: Lactic Acid Level 1.46 Lactic Acid Level Laboratory Tests Test 01/18/19 17:39 Lactic Acid Level 1.46 MMOL/L (0.50-2.00) Procedures/Interventions Suture Size: 5-0 Progress/Results/Core Measures Suspected Sepsis Recent Fever Within 48 Hours: Yes Infection Criteria Present: Suspected New Infection New/Unexplained Altered Menta: Yes Sepsis Screen: Possible Severe Sepsis Risk SIRS Temperature:102.9 Pulse: 115 Respiratory Rate: 14 Laboratory Tests 01/18/19 17:39: White Blood Count 10.4 Blood Pressure 156 /80 Mean: 105 01/18/19 17:39: Lactic Acid Level 1.46 Laboratory Tests 01/18/19 17:39: Creatinine 0.79, INR Comment 1.1, Platelet Count 221, Total Bilirubin 0.6 Results/Orders Lab Results Laboratory Tests Test 01/18/19 17:39 01/18/19 18:55 Range/Units White Blood Count 10.4 4.3-11.0 10^3/uL Red Blood Count 5.12 4.35-5.85 10^6/uL Hemoglobin 15.6 11.5-16.0 G/DL Hematocrit 45 35-52 % Mean Corpuscular Volume 87 80-99 FL Mean Corpuscular Hemoglobin 31 25-34 PG Mean Corpuscular Hemoglobin Concent 35 32-36 G/DL Red Cell Distribution Width 13.9 10.0-14.5 % Platelet Count 221 130-400 10^3/uL Mean Platelet Volume 10.0 7.4-10.4 FL Neutrophils (%) (Auto) 86 H 42-75 % Lymphocytes (%) (Auto) 6 L 12-44 % Monocytes (%) (Auto) 8 0-12 % Eosinophils (%) (Auto) 0 0-10 % Basophils (%) (Auto) 0 0-10 % Neutrophils # (Auto) 8.9 H 1.8-7.8 X 10^3 Lymphocytes # (Auto) 0.6 L 1.0-4.0 X 10^3 Monocytes # (Auto) 0.9 0.0-1.0 X 10^3 Eosinophils # (Auto) 0.0 0.0-0.3 10^3/uL Basophils # (Auto) 0.0 0.0-0.1 10^3/uL Neutrophils % (Manual) 88 % Lymphocytes % (Manual) 6 % Monocytes % (Manual) 6 % Eosinophils % (Manual) 0 % Basophils % (Manual) 0 % Band Neutrophils 0 % Blood Morphology Comment NORMAL Prothrombin Time 14.5 12.2-14.7 SEC INR Comment 1.1 0.8-1.4 Activated Partial Thromboplast Time 26 24-35 SEC Sodium Level 141 135-145 MMOL/L Potassium Level 3.7 3.6-5.0 MMOL/L Chloride Level 107 98-107 MMOL/L Carbon Dioxide Level 21 21-32 MMOL/L Anion Gap 13 5-14 MMOL/L Blood Urea Nitrogen 17 7-18 MG/DL Creatinine 0.79 0.60-1.30 MG/DL Estimat Glomerular Filtration Rate > 60 BUN/Creatinine Ratio 22 Glucose Level 164 H 70-105 MG/DL Lactic Acid Level 1.46 0.50-2.00 MMOL/L Calcium Level 9.2 8.5-10.1 MG/DL Corrected Calcium 8.9 8.5-10.1 MG/DL Total Bilirubin 0.6 0.1-1.0 MG/DL Aspartate Amino Transf (AST/SGOT) 25 5-34 U/L Alanine Aminotransferase (ALT/SGPT) 12 0-55 U/L Alkaline Phosphatase 72 40-136 U/L Total Protein 7.3 6.4-8.2 GM/DL Albumin 4.4 3.2-4.5 GM/DL Urine Color YELLOW Urine Clarity SLIGHTLY CLOUDY Urine pH 5 5-9 Urine Specific [place] 1.025 H 1.016-1.022 Urine Protein 2+ H NEGATIVE Urine Glucose (UA) NEGATIVE NEGATIVE Urine Ketones 3+ H NEGATIVE Urine Nitrite NEGATIVE NEGATIVE Urine Bilirubin NEGATIVE NEGATIVE Urine Urobilinogen NORMAL NORMAL MG/DL Urine Leukocyte Esterase 2+ H NEGATIVE Urine RBC (Auto) 3+ H NEGATIVE Urine RBC 0-2 /HPF Urine WBC 2-5 /HPF Urine Squamous Epithelial Cells RARE /HPF Urine Crystals NONE /LPF Urine Bacteria NEGATIVE /HPF Urine Casts NONE /LPF Urine Mucus NEGATIVE /LPF Urine Culture Indicated NO Micro Results Microbiology 01/18/19 Influenza Types A,B Antigen (JOSE LUIS) - Final, Complete My Orders Orders - BRITTANI RUSHING Protime With Inr (01/18/19 18:56) Partial Thromboplastin Time (01/18/19 18:56) Chong Cath (01/18/19 18:56) Cefepime Injection (Maxipime Injection) (01/18/19 19:00) Saline Lock/Iv-Start (01/18/19 18:56) Ns Iv 500 Ml (Sodium Chloride 0.9%) (01/18/19 18:56) Azithromycin Injection (Zithromax Inject (01/18/19 20:00) Medications Given in ED Current Medications Medications Dose Ordered Sig/John Route Start Time Stop Time Status Last Admin Dose Admin Azithromycin 500 mg/Sodium Chloride 250 ml @ 250 mls/hr ONCE ONCE IV 01/18/19 20:00 01/18/19 20:59 DC 01/18/19 20:13 250 MLS/HR Cefepime HCl 1000 mg/Sterile Water 10 ml @ 200 mls/hr ONCE ONCE IV 01/18/19 19:00 01/18/19 19:02 DC 01/18/19 19:18 200 MLS/HR Sodium Chloride 500 ml @ 0 mls/hr Q0M ONCE IV 01/18/19 18:56 01/18/19 18:58 DC 01/18/19 19:18 0 MLS/HR Vital Signs/I&O 01/18/19 01/18/19 17:34 20:49 Temp 102.9 Pulse 115 94 Resp 14 14 B/P (MAP) 156/80 (105) 128/60 (82) Pulse Ox 94 93 O2 Delivery Non Rebreather Nasal Cannula O2 Flow Rate 3.00 Capillary Refill : Less Than 3 Seconds Blood Pressure Mean: 105 Progress Note #1: Time: 18:43 Progress Note Septic workup. Influenza. Chest x-ray shows some bibasilar pneumonitis. Consideration for the possibility of aspiration given she vomited and was altered mental status at the residential. We have not been able to suction any food-like substance out of her oropharynx. CT of the brain. Chong catheter. Cefepime would cover for UTI versus pneumonia. Progress Note #2: Time: 19:46 Progress Note Urine is clean. The chest x-ray demonstrates pneumonitis bilateral lower bases. She has started to have some nonproductive cough since she woke up and started answering some basic questions such as her name. She still quite confused as to where she has. She started waking up after the IV fluids were initiated but before antibiotics. No mention that she is on baseline oxygen. She was on a nonrebreather. When EMS brought her but we downgraded her to nasal cannula at 2 L and she was satting in the 90-94 range so we increased that to 4 L and she is now satting about 94%. The patient's family has asked that since the hospital here and [place] is on diversion they would like to try and go to [place] if possible. We have put in a call the Dr. Nielsen and Dr. Nunn and they are discussing whether she would be appropriate there. Diagnostic Imaging Diagonstic Imaging: Xray Plain Films/CT/US/NM/MRI: chest Comments NAME: MELODIE GLASER [facility] REC#: [id number] PHYSICIAN: SHANTHI EDWARDS APRN CC: SHANTHI EDWARDS APRN; REY SOLOMON MD Page 1 of 1 RADIOLOGY REPORT [facility]. [place], [place] CC: SHANTHI EDWARDS APRN; REY SOLOMON MD Page 1 of 1 RADIOLOGY REPORT NAME: MELODIE GLASER [facility] REC#: [id number] PT STATUS: REG ER : 1930 PHYSICIAN: SHANTHI EDWARDS APRN ADMIT DATE: 01/18/19/ER Signed Date of Exam: 01/18/19 CHEST 1 VIEW, AP/PA ONLY INDICATION: Hypoxia and shortness of breath. FINDINGS: There is cardiomegaly. There is some venous congestion. There is some bibasilar atelectasis and/or pneumonitis. There is no pleural effusion or pneumothorax. The mediastinum is unremarkable. IMPRESSION: Bibasilar atelectasis and/or pneumonitis. Cardiomegaly and mild central pulmonary venous congestion. Dictated by: Dictated on workstation # [id number] Dict: 01/18/191820 Trans: 01/18/191829 Interpreted by: REY SOLOMON MD Electronically signed by: REY SOLOMON MD 01/18/19 183 Reviewed: Reviewed by Me Diagonstic Imaging: CT (without contrast) Plain Films/CT/US/NM/MRI: head Comments NAME: MELODIE GLASER [employer] REC#: [id number] PHYSICIAN: SHANTHI EDWARDS APRN CC: SHANTHI EDWARDS APRN; REY SOLOMON MD Page 1 of 1 RADIOLOGY REPORT [facility]. [place], [place] CC: SHANTHI EDWARDS APRN; REY SOLOMON MD Page 1 of 1 RADIOLOGY REPORT NAME: MELODIE GLASER [employer] [facility] REC#: [id number] PT STATUS: REG ER : 1930 PHYSICIAN: SHANTHI EDWARDS [employer] ADMIT DATE: 01/18/19/ER Signed Date of Exam: 01/18/19 CT HEAD WO PROCEDURE: CT head without contrast. TECHNIQUE: Multiple contiguous axial images were obtained through the brain without the use of intravenous contrast. INDICATION: Fever and lethargy. FINDINGS: There is prominence of the ventricles and sulci. There is no hydrocephalus or cerebral edema. There is no midline shift or mass-effect. There is no intracranial mass, hemorrhage, or extra-axial fluid collection. There is some diffuse decreased attenuation of the periventricular white matter which is nonspecific. The visualized paranasal sinuses and mastoid air cells are clear. There are no regional areas of decreased attenuation appreciated to suggest an acute CVA. IMPRESSION: 1. No acute intracranial process. 2. Age-appropriate atrophy. 3. Decreased attenuation of the periventricular white matter which is nonspecific, however, likely reflects senescent change and/or chronic small vessel ischemic disease. Dictated by: Dictated on workstation # [id number] Dict: 01/18/191818 Trans: 01/18/191821 Interpreted by: REY SOLOMON MD Electronically signed by: REY SOLOMON MD 01/18/191821 Reviewed: Reviewed by Me Departure Impression Primary Impression: Pneumonia Qualified Codes: J18.1 - Lobar pneumonia, unspecified organism Additional Impressions: Sepsis Qualified Codes: A41.9 - Sepsis, unspecified organism Delirium due to another medical condition, acute, hypoactive Disposition: XF SHT-TRM HOSP Condition: Stable Transfer Time Spoke to Accepting Phy: 19:50 Transfer Progress Notes Discussed the case with Dr. Lawrence and she called and talked to the primary care provider Dr. Nunn who agrees to admit the patient. Dr. Nielsen will apply orders overnight and Dr. Nunn will take over the patient. The patient has been accepted to [facility] room 107. The family was updated and will transfer by EMS. Transfer Time: 21:00 Transfer Facility: [place], [place] Method of Transfer: EMS Departure-Patient Inst. Referrals: PRAVEENA NUNN MD (PCP/Family) Primary Care Physician BRITTANI RUSHING Jan 18, 2019 18:47
[2019-01-18] MEDS ORDERED: NS IV 500 ML 500 ML IV ONE (18:56)
[2019-01-18] MEDS ORDERED: CEFEPIME INJECTION 1,000 MG in WATER (STERILE) FOR INJECTION 10 ML IV ONE (19:00)
[2019-01-18 19:01] LABS: BILIRUBIN,URINE NEGATIVE (NEGATIVE); CLARITY,URINE SLIGHTLY CLOUDY; COLOR,URINE YELLOW; GLUCOSE, URINE (UA) NEGATIVE (NEGATIVE); KETONES,URINE 3+ (NEGATIVE); LEUKOCYTE ESTERASE ,URINE 2+ (NEGATIVE); NITRITE,URINE NEGATIVE (NEGATIVE); PH,URINE 5 (5-9); PROTEIN,URINE 2+ (NEGATIVE); UROBILINOGEN,URINE NORMAL (NORMAL)
[2019-01-18 19:07] LABS: BACTERIA,URINE NEGATIVE /HPF; RBC,URINE 0-2 /HPF; SQUAMOUS EPITHELIAL CELL,UR RARE /HPF
[2019-01-18 19:09] LABS: INR 1.1 (0.8-1.4); PROTHROMBIN TIME PATIENT 14.5 SEC (12.2-14.7)
[2019-01-18] MEDS ORDERED: AZITHROMYCIN INJECTION 500 MG in NS (IVPB) 250 ML IV ONE (20:00)
--- NOTE | 2019-01-18 20:00 | NUR ---
Pt. report called to Sarkis Don APRN at [facility]. He advised pt. room number would be 107. Pt. family was notified of room number and appropriate documentation was signed. Family plans to meet the patient at [place].
--- NOTE | 2019-01-18 20:15 | NUR ---
[facility] EMS contacted for patient transport to [facility]
[2019-01-18 20:49] VITALS: BP 128/60
--- OUTSIDE RECORDS SUMMARY | 2019-01-20 10:09 | XMS REPORT | Continuity of Care Document ---
Author Author [facility] Organization [facility] Address Unknown Phone Unavailable Allergies Active Description Code Type Severity Reaction Onset Reported/Identified Relationship to Patient Clinical Status Yes Sulfa (Sulfonamide Antibiotics) [id number] Drug Allergy Unknown N/A 2014 Medications There [...] 487.1 FLU W RESP MANIFEST NEC 12/16/2014 JAEMS ARAUZ, JOSE Rahman Ot 530.81 ESOPHAGEAL REFLUX [...] ANDRES MD Ot Y92.[address] IN [facility] 12/06/2016 GIBRAN ANDRES MD Ot Y99.8 OTHER EXTERNAL CAUSE STATUS 12/06/2016 GIBRAN ANDRES MD Ot Z79.82 PENITENTIARY (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 12/06/2016 GIBRAN ANDRES MD Ot Z79.899 OTHER PENITENTIARY (CURRENT) DRUG THERAPY 03/15/2017 PRAVEENA TRIMBLE MD [...] ANDRES MD Ot Y92.[address] [facility] 03/15/2017 GIBRAN ANDRES MD Ot Y99.8 OTHER EXTERNAL CAUSE STATUS 03/15/2017 GIBRAN ANDRES MD Ot Z23 ENCOUNTER FOR IMMUNIZATION 03/15/2017 GIBRAN ANDRES MD Ot Z79.82 PENITENTIARY (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 03/15/2017 GIBRAN ANDRES MD Ot Z79.899 OTHER PENITENTIARY (CURRENT) DRUG THERAPY 03/17/2017 GIBRAN ANDRES MD Ot F03.90 UNSPECIFIED DEMENTIA WITHOUT BEHAVIORAL 03/17/2017 GIBRAN ANDRES MD, Ot I10 ESSENTIAL (PRIMARY) HYPERTENSION 03/17/2017 GIBRAN ANDRES MD Ot S01.412A LACERATION W/O FOREIGN BODY OF LEFT ERICA 03/17/2017 GIBRAN ANDRES MD Ot W01.0XXA FALL SAME LEV FROM SLIP/TRIP W/O STRIKE 03/17/2017 GIBRAN ANDRES MD Ot Y92.[address] [facility] PLACE 03/17/2017 GIBRAN ANDRES MD Ot Y99.8 OTHER EXTERNAL CAUSE STATUS 03/17/2017 GIBRAN ANDRES MD Ot Z23 ENCOUNTER FOR IMMUNIZATION 03/17/2017 GIBRAN ANDRES MD, Ot Z79.82 PENITENTIARY (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 03/17/2017 GIBRAN ANDRES MD Ot Z79.899 OTHER PENITENTIARY (CURRENT) DRUG THERAPY 05/08/2018 SHANTHI EDWARDS APRN [...] ENCO 05/08/2018 SHANTHI EDWARDS APRN Ot Z79.52 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 PROCESSOR (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 STER 05/08/2018 SHANTHI EDWARDS APRN Ot Z79.82 PENITENTIARY (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 05/08/2018 SHANTHI EDWARDS [...] ENCO 05/10/2018 SHANTHI EDWARDS APRN Ot Z79.52 PENITENTIARY (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 STER 05/10/2018 SHANTHI EDWARDS APRN Ot Z79.82 ITEM PROCESSOR (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 05/10/2018 SHANTHI EDWARDS APRN Ot Z85.3 PERSONAL HISTORY OF MALIGNANT NEOPLASM O 05/10/2018 SHANTHI EDWARDS APRN Ot Z87.81 PERSONAL HISTORY OF (HEALED) TRAUMATIC F 05/10/2018 SHANTHI EDWARDS APRN Ot Z88.2 ALLERGY STATUS TO SULFONAMIDES STATUS 05/10/2018 SHANTHI EDWARDS APRN Ot Z90.710 ACQUIRED ABSENCE OF BOTH CERVIX AND UTER 07/27/2018 MARAH DO, CHARLOTTE K Ot E78.00 PURE HYPERCHOLESTEROLEMIA, UNSPECIFIED 07/27/2018 MARAH DO, CHARLOTTE K Ot F03.90 UNSPECIFIED DEMENTIA WITHOUT BEHAVIORAL 07/27/2018 MARAH DO CHARLOTTE K Ot F32.9 MAJOR DEPRESSIVE DISORDER, SINGLE EPISOD 07/27/2018 MARAH DO, CHARLOTTE K Ot I10 ESSENTIAL (PRIMARY) HYPERTENSION 07/27/2018 MARAH DO CHARLOTTE K Ot J98.11 ATELECTASIS 07/27/2018 MARAH DO CHARLOTTE K Ot K21.9 GASTRO-ESOPHAGEAL REFLUX DISEASE WITHOUT 07/27/2018 CHARLOTTE CRYSTAL DO, Ot M79.601 PAIN IN RIGHT ARM 07/27/2018 CHARLOTTE CRYSTAL DO, Ot N39.0 URINARY TRACT INFECTION, SITE NOT SPECIF 07/27/2018 CHARLOTTE CRYSTAL DO, Ot R10.2 PELVIC AND PERINEAL PAIN 07/27/2018 CHARLOTTE CRYSTAL DO, Ot S46.911A STRAIN UNSP MUSC/FASC/TEND AT SHLDR/UP A 07/27/2018 CHARLOTTE CRYSTAL DO, Ot W06.XXXA FALL FROM BED, INITIAL ENCOUNTER 07/27/2018 CHARLOTTE CRYSTAL DO, Ot Z79.52 ITEM PROCESSOR (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 STER 07/27/2018 CHARLOTTE CRYSTAL DO, Ot Z79.82 ITEM PROCESSOR (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 07/27/2018 CHARLOTTE CRYSTAL DO, Ot Z82.49 FAMILY HX OF ISCHEM HEART DIS AND OTH DI 07/27/2018 CHARLOTTE CRYSTAL DO, Ot Z85.3 PERSONAL HISTORY OF MALIGNANT NEOPLASM O 07/27/2018 CHARLOTTE CRYSTAL DO, Ot Z87.19 PERSONAL HISTORY OF OTHER DISEASES OF TH 07/27/2018 CHARLOTTE CRYSTAL DO, Ot Z87.440 PERSONAL HISTORY OF URINARY (TRACT) INFE 07/27/2018 CHARLOTTE CRSYTAL DO, Ot Z88.2 ALLERGY STATUS TO SULFONAMIDES STATUS 07/27/2018 CHARLOTTE CRYSTAL DO, Ot Z90.13 ACQUIRED ABSENCE OF BILATERAL BREASTS AN 07/27/2018 CHARLOTTE CRYSTAL DO, Ot Z90.710 ACQUIRED ABSENCE OF BOTH CERVIX AND UTER 07/30/2018 CHARLOTTE CRYSTAL DO Ot E78.00 PURE HYPERCHOLESTEROLEMIA, UNSPECIFIED 07/30/2018 CHARLOTTE CRYSTAL DO Ot F03.90 UNSPECIFIED DEMENTIA WITHOUT BEHAVIORAL 07/30/2018 CHARLOTTE CRYSTAL DO Ot F32.9 MAJOR DEPRESSIVE DISORDER, SINGLE EPISOD 07/30/2018 CHARLOTTE CRYSTAL DO Ot I10 ESSENTIAL (PRIMARY) HYPERTENSION 07/30/2018 CHARLOTTE CRYSTAL DO, Ot J98.11 ATELECTASIS 07/30/2018 CHARLOTTE CRYSTAL DO, Ot K21.9 GASTRO-ESOPHAGEAL REFLUX DISEASE WITHOUT 07/30/2018 CHARLOTTE CRYSTAL DO, Ot M79.601 PAIN IN RIGHT ARM 07/30/2018 CHARLOTTE CRYSTAL DO, Ot N39.0 URINARY TRACT INFECTION, SITE NOT SPECIF 07/30/2018 CHARLOTTE CRYSTAL DO, Ot R10.2 PELVIC AND PERINEAL PAIN 07/30/2018 CHARLOTTE CRYSTAL DO, Ot S46.911A STRAIN UNSP MUSC/FASC/TEND AT SHLDR/UP A 07/30/2018 CHARLOTTE CRYSTAL DO Ot W06.XXXA FALL FROM BED, INITIAL ENCOUNTER 07/30/2018 CHARLOTTE CRYSTAL DO, Ot Z79.52 PENITENTIARY (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 STER 07/30/2018 CHARLOTTE CRYSTAL DO, Ot Z79.82 PENITENTIARY (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 07/30/2018 CHARLOTTE CRYSTAL DO, Ot Z82.49 FAMILY HX OF ISCHEM HEART DIS AND OTH DI 07/30/2018 CHARLOTTE CRYSTAL DO, Ot Z85.3 PERSONAL HISTORY OF MALIGNANT NEOPLASM O 07/30/2018 CHARLOTTE CRYSTAL DO, Ot Z87.19 PERSONAL HISTORY OF OTHER DISEASES OF TH 07/30/2018 CHARLOTTE CRYSTAL DO, Ot Z87.440 PERSONAL HISTORY OF URINARY (TRACT) INFE 07/30/2018 CHARLOTTE CRYSTAL DO, Ot Z88.2 ALLERGY STATUS TO SULFONAMIDES STATUS 07/30/2018 CHARLOTTE CRYSTAL DO, Ot Z90.13 ACQUIRED ABSENCE OF BILATERAL BREASTS AN 07/30/2018 CHARLOTTE CRYSTAL DO Ot Z90.710 ACQUIRED ABSENCE OF BOTH CERVIX AND UTER 08/02/2018 CHARLOTTE CRYSTAL DO Ot E78.00 PURE HYPERCHOLESTEROLEMIA, UNSPECIFIED 08/02/2018 CHARLOTTE CRYSTAL DO Ot F03.90 UNSPECIFIED DEMENTIA WITHOUT BEHAVIORAL 08/02/2018 CHARLOTTE CRYSTAL DO Ot F32.9 MAJOR DEPRESSIVE DISORDER, SINGLE EPISOD 08/02/2018 CHARLOTTE CRYSTAL DO Ot I10 ESSENTIAL (PRIMARY) HYPERTENSION 08/02/2018 CHARLOTTE CRYSTAL DO Ot J98.11 ATELECTASIS 08/02/2018 CHARLOTTE CRYSTAL DO, Ot K21.9 GASTRO-ESOPHAGEAL REFLUX DISEASE WITHOUT 08/02/2018 CHARLOTTE CRYSTAL DO, Ot M79.601 PAIN IN RIGHT ARM 08/02/2018 CHARLOTTE CRYSTAL DO, Ot N39.0 URINARY TRACT INFECTION, SITE NOT SPECIF 08/02/2018 CHARLOTTE CRYSTAL DO Ot R10.2 PELVIC AND PERINEAL PAIN 08/02/2018 CHARLOTTE CRYSTAL DO Ot S46.911A STRAIN UNSP MUSC/FASC/TEND AT SHLDR/UP A 08/02/2018 CHARLOTTE CRYSTAL DO Ot W06.XXXA FALL FROM BED, INITIAL ENCOUNTER 08/02/2018 CHARLOTTE CRYSTAL DO Ot Z79.52 ITEM PROCESSOR (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 STER 08/02/2018 MARAH FERNANDO CHARLOTTE Diana Ot Z79.82 ITEM PROCESSOR (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 08/02/2018 MARAH FERNANDO CHARLOT[place] Diana Ot Z82.49 FAMILY HX OF ISCHEM HEART DIS AND OTH DI 08/02/2018 MARAH FERNANDO CHARLOTTE Diana Ot Z85.3 PERSONAL HISTORY OF MALIGNANT NEOPLASM O 08/02/2018 MARAH FERNANDO CHARLOTTE Diana Ot Z87.19 PERSONAL HISTORY OF OTHER DISEASES OF TH 08/02/2018 MARAH FERNANDO CHARLOTTE Diana Ot Z87.440 PERSONAL HISTORY OF URINARY (TRACT) INFE 08/02/2018 AMRAH FERNANDO CHARLOTTE Ortiz Ot Z88.2 ALLERGY STATUS TO SULFONAMIDES STATUS 08/02/2018 CHARLOTTE CRYSTAL DO Ot Z90.13 ACQUIRED ABSENCE OF BILATERAL BREASTS AN 08/02/2018 MARAH FERNANDO CHARLOTTE Ortiz Ot Z90.710 ACQUIRED ABSENCE OF BOTH CERVIX AND UTER 01/18/2019 PRAVEENA TRIMBLE MD Ot 812.01 FX SURG NCK HUMERUS-CLOS 01/18/2019 PRAVEENA TRIMBLE MD Ot E000.8 OTHER EXTERNAL CAUSE STATUS 01/18/2019 PRAVEENA TRIMBLE MD Ot E888.9 FALL NOS 01/18/2019 PRAVEENA TRIMBLE MD Ot 812.01 FX SURG NCK HUMERUS-CLOS 01/18/2019 PRAVEENA TRIMBLE MD Ot E000.8 OTHER EXTERNAL CAUSE STATUS 01/18/2019 PRAVEENA TRIMBLE MD Ot E888.9 FALL NOS 01/18/2019 PRAVEENA TRIMBLE MD, Ot 812.01 FX SURG NCK HUMERUS-CLOS 01/18/2019 PRAVEENA TRIMBLE MD Ot E000.8 OTHER EXTERNAL CAUSE STATUS 01/18/2019 PRAVEENA TRIMBLE MD, Ot E888.9 FALL NOS Procedures There is no data. Results Test [...] urinalysis with reflex to culture NO NRG Complete urinalysis with reflex to culture - 07/27/18 07:57 Urine color determination YELLOW NRG Urine clarity determination CLEAR NRG Urine pH measurement by test strip 5 5-9 Specific gravity of urine by test strip 1.025 1.016- 1.022 Urine protein assay by test strip, semi-quantitative 3+ NEGATIVE Urine glucose detection by automated test strip 3+ NEGATIVE Erythrocytes detection in urine sediment by light microscopy 5+ NEGATIVE Urine ketones detection by automated test strip 4+ NEGATIVE Urine nitrite detection by test strip POSITIVE NEGATIVE Urine total bilirubin detection by test strip NEGATIVE NEGATIVE Urine urobilinogen measurement by automated test strip (mass/volume) 1 mg/dL NORMAL Urine leukocyte esterase detection by dipstick 1+ NEGATIVE Automated urine sediment erythrocyte count by microscopy (number/high power field) [HPF] NRG Automated urine sediment leukocyte count by microscopy (number/high power field ) [HPF] NRG Bacteria detection in urine sediment by light microscopy MODERATE NRG Crystals detection in urine sediment by light microscopy PRESENT NRG Casts detection in urine sediment by light microscopy NONE NRG Mucus detection in urine sediment by light microscopy NEGATIVE NRG Complete urinalysis with reflex to culture YES NRG Amorphous sediment detection in urine sediment by light microscopy FEW MICKY URATES NRG Bacterial urine culture - 07/27/18 07:57 Bacterial urine culture [id number] NRG COLONY COUNT >100,000/ML NRG FTX;REPORTABLE SUSCEPTIBILITY REPORTED 07-29-2018, 0906 NR FREE TEXT ENTRY 2 FINAL REPORT 07-29-2018, 0906. NRG RML Sensitivity Panel - 07/27/18 07:57 Gentamicin susceptibility test by minimum inhibitory concentration < = NRG Levofloxacin susceptibility test by minimum inhibitory concentration 4 NRG Tobramycin susceptibility test by minimum inhibitory concentration S NRG Piperacillin/tazobactam susceptibility test by minimum inhibitory concentration = NRG Ciprofloxacin susceptibility test by minimum inhibitory concentration > NRG Meropenem susceptibility test by minimum inhibitory concentration 0.5 NRG Aztreonam susceptibility test by minimum inhibitory concentration < = NRG Cefepime susceptibility test by minimum inhibitory concentration 2 NRG Imipenem susceptibility test by minimum inhibitory concentration S NRG Ceftazidime susceptibility test by minimum inhibitory concentration <= NRG Complete blood count (CBC) with automated white blood cell (WBC) differential - 01/18/19 17:39 Blood leukocytes automated count (number/volume) 10.4 10*3/uL 4.3-11.0 Blood erythrocytes automated count (number/volume) 5.12 10*6/uL 4.35-5.85 Venous blood hemoglobin measurement (mass/volume) 15.6 g/dL 11.5-16.0 Blood hematocrit (volume fraction) 45 % 35-52 Automated erythrocyte mean corpuscular volume 87 [foz_us] 80-99 Automated erythrocyte mean corpuscular hemoglobin (mass per erythrocyte) 31 pg 25-34 Automated erythrocyte mean corpuscular hemoglobin concentration measurement ( mass/volume) 35 g/dL 32-36 Automated erythrocyte distribution width ratio 13.9 % 10.0-14.5 Automated blood platelet count (count/volume) 221 10*3/uL 130-400 Automated blood platelet mean volume measurement 10.0 [foz_us] 7.4-10.4 Automated blood neutrophils/100 leukocytes 86 % 42-75 Automated blood lymphocytes/100 leukocytes 6 % 12-44 Blood monocytes/100 leukocytes 8 % 0-12 Automated blood eosinophils/100 leukocytes 0 % 0-10 Automated blood basophils/100 leukocytes 0 % 0-10 Blood neutrophils automated count (number/volume) 8.9 10*3 1.8-7.8 Blood lymphocytes automated count (number/volume) 0.6 10*3 1.0-4.0 Blood monocytes automated count (number/volume) 0.9 10*3 0.0-1.0 Automated eosinophil count 0.0 10*3/uL 0.0-0.3 Automated blood basophil count (count/volume) 0.0 10*3/uL 0.0-0.1 Blood lactic acid measurement (moles/volume) - 01/18/19 17:39 Blood lactic acid measurement (moles/volume) 1.46 mmol/L 0.50-2.00 Comprehensive metabolic panel - 01/18/19 17:39 Serum or plasma sodium measurement (moles/volume) 141 mmol/L 135-145 Serum or plasma potassium measurement (moles/volume) 3.7 mmol/L 3.6-5.0 Serum or plasma chloride measurement (moles/volume) 107 mmol/L 98-107 Carbon dioxide 21 mmol/L 21-32 Serum or plasma anion gap determination (moles/volume) 13 mmol/L 5-14 Serum or plasma urea nitrogen measurement (mass/volume) 17 mg/dL 7-18 Serum or plasma creatinine measurement (mass/volume) 0.79 mg/dL 0.60-1.30 Serum or plasma urea nitrogen/creatinine mass ratio 22 NRG Serum or plasma creatinine measurement with calculation of estimated glomerular filtration rate > NRG Serum or plasma glucose measurement (mass/volume) 164 mg/dL 70-105 Serum or plasma calcium measurement (mass/volume) 9.2 mg/dL 8.5-10.1 Serum or plasma total bilirubin measurement (mass/volume) 0.6 mg/dL 0.1-1.0 Serum or plasma alkaline phosphatase measurement (enzymatic activity/volume) 72 U/L 40-136 Serum or plasma aspartate aminotransferase measurement (enzymatic activity/ volume) 25 U/L 5-34 Serum or plasma alanine aminotransferase measurement (enzymatic activity/volume ) 12 U/L 0-55 Serum or plasma protein measurement (mass/volume) 7.3 g/dL 6.4-8.2 Serum or plasma albumin measurement (mass/volume) 4.4 g/dL 3.2-4.5 CALCIUM CORRECTED 8.9 mg/dL 8.5-10.1 Influenza virus A and B antigen detection - 01/18/19 17:39 FLU RESULT NEGATIVE FOR INFLUENZA A AND B ANTIGENS BY IA NRG Blood manual differential performed detection - 01/18/19 17:39 Blood monocytes/100 leukocytes 6 % NRG Manual blood segmented neutrophils/100 leukocytes 88 % NRG Blood band neutrophils/100 leukocytes 0 % NRG Manual blood lymphocytes/100 leukocytes 6 % NRG Manual eosinophils/100 leukocytes in nose 0 % NRG Manual blood basophils/100 leukocytes 0 % NRG Blood erythrocyte morphology finding identification NORMAL NRG PT panel in platelet poor plasma by coagulation assay - 01/18/19 17:39 Prothrombin time (PT) in platelet poor plasma by coagulation assay 14.5 s 12.2-14.7 INR in platelet poor plasma or blood by coagulation assay 1.1 0.8-1.4 Activated partial thromboplastin time (aPTT) in platelet poor plasma bycoagulation assay - 01/18/19 17:39 Activated partial thromboplastin time (aPTT) in platelet poor plasma bycoagulation assay 26 s 24-35 Complete urinalysis with reflex to culture - 01/18/19 18:55 Urine color determination YELLOW NRG Urine clarity determination SLIGHTLY CLOUDY NRG Urine pH measurement by test strip 5 5-9 Specific gravity of urine by test strip 1.025 1.016- 1.022 Urine protein assay by test strip, semi-quantitative 2+ NEGATIVE Urine glucose detection by automated test strip NEGATIVE NEGATIVE Erythrocytes detection in urine sediment by light microscopy 3+ NEGATIVE Urine ketones detection by automated test strip 3+ NEGATIVE Urine nitrite detection by test strip [...] detection in urine sediment by light microscopy RARE NRG Crystals detection in urine sediment by light microscopy NONE NRG Casts detection in urine sediment by light microscopy NONE NRG Mucus detection in urine sediment by light microscopy NEGATIVE NRG Complete urinalysis with reflex to culture NO NRG Encounters ACCT No. Visit Date/Time Discharge Status Pt. 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 [facility] ER FALL [id number] 03/15/2017 04:25:00 03/15/2017 06:45:00 DIS Emergency DMITRY ARAUZ, GIBRAN Mejia [facility] ER FALL,ABRASION BELOW L EYE [id number] 12/06/2016 12:15:00 12/06/2016 15:48:00 DIS Emergency DMITRY ARAUZ, GIBRAN Mejia [facility] ER FALL [id number] 04/14/2015 11:58:00 04/14/2015 23:59:59 CLS Outpatient NAI ARAUZ, PRAVEENA Pryor [facility] RAD FALL/SHOULDER PAIN [id number] 12/13/2014 13:40:00 12/16/2014 11:10:00 DIS Inpatient JAMES ARAUZ, JOSE Rahman [facility] 4TH INFLUENZA A,HYPOKALEMIA, FALLS [id number] 04/15/2015 05:39:57 ACT Document Registration
== END 2019-01-18 21:01 | disposition short-term general hospital (02) ==
LOC: EDUNIT# 17:30 → ER 17:31
DX: J18.9 Pneumonia, unspecified organism (principal); A41.9 Sepsis, unspecified organism; F02.80 Dementia in other diseases classified elsewhere, unspecified severity, without behavioral disturbance, psychotic disturbance, mood disturbance, and anxiety; R46.4 Slowness and poor responsiveness; I10 Essential (primary) hypertension; E78.00 Pure hypercholesterolemia, unspecified; K21.9 Gastro-esophageal reflux disease without esophagitis; F32.9 Major depressive disorder, single episode, unspecified; Z88.2 Allergy status to sulfonamides; Z87.440 Personal history of urinary (tract) infections; Z87.19 Personal history of other diseases of the digestive system; Z85.3 Personal history of malignant neoplasm of breast; Z79.82 Long term (current) use of aspirin; Z79.52 Long term (current) use of systemic steroids; Z90.710 Acquired absence of both cervix and uterus; Z90.13 Acquired absence of bilateral breasts and nipples
CPT/HCPCS: 36415; 51702; 70450; 71045; 80053; 81000; 83605; 85007; 85027; 85610; 85730; 87040; 87804

== ENCOUNTER 2019-04-17 20:58 | Emergency (ER) | payer MEDICARE, OTHER, MEDICAID ==
[~2019-04-17] VITALS: Ht 162.6 cm; Wt 68.3 kg
[2019-04-17] MEDS ORDERED: MIRT15TA6 PO (21:12)
[2019-04-17 21:38] LABS: BASOPHILS % (AUTO) 0 % (0-10); EOSINOPHILS # (AUTO) 0.1 10^3/uL (0.0-0.3); EOSINOPHILS % (AUTO) 1 % (0-10); HEMATOCRIT 41 % (35-52); HEMOGLOBIN 14.2 G/DL (11.5-16.0); LYMPHOCYTES # (AUTO) 1.4 X 10^3 (1.0-4.0); LYMPHOCYTES % (AUTO) 19 % (12-44); MEAN CORPUSCULAR HEMOGLOBIN 29 PG (25-34); MEAN CORPUSCULAR HGB CONC 35 G/DL (32-36); MEAN CORPUSCULAR VOLUME 85 FL (80-99); MEAN PLATELET VOLUME 9.7 FL (7.4-10.4); MONOCYTES # (AUTO) 0.9 X 10^3 (0.0-1.0); MONOCYTES % (AUTO) 11 % (0-12); NEUTROPHILS # (AUTO) 5.3 X 10^3 (1.8-7.8); NEUTROPHILS % (AUTO) 68 % (42-75); PLATELET COUNT 301 10^3/uL (130-400); WHITE BLOOD COUNT 7.7 10^3/uL (4.3-11.0)
[2019-04-17 21:57] LABS: ALANINE AMINOTRANSFERASE 14 U/L (0-55); ALBUMIN 4.2 GM/DL (3.2-4.5); ALKALINE PHOSPHATASE 91 U/L (40-136); BILIRUBIN,TOTAL 0.4 MG/DL (0.1-1.0); BUN/CREATININE RATIO 17; CALCIUM 9.8 MG/DL (8.5-10.1); CARBON DIOXIDE 27 MMOL/L (21-32); CHLORIDE 105 MMOL/L (98-107); CREATININE SERUM 0.71 MG/DL (0.60-1.30); GFR ESTIMATED > 60; GLUCOSE 132 MG/DL (70-105); SODIUM 141 MMOL/L (135-145)
--- NOTE | 2019-04-17 22:04 | Diagnostic Imaging Report ---
PROCEDURE: CT head and CT cervical spine without contrast. TECHNIQUE: Multiple contiguous axial images were obtained through the brain and cervical spine without the use of intravenous contrast. Sagittal and coronal reformations through the cervical spine were then performed. Auto Exposure Controls were utilized during the CT exam to meet ALARA standards for radiation dose reduction. INDICATION: Head and neck pain after fall. Comparison is made with prior examination from 01/18/2019. FINDINGS: There is prominence of the ventricles and sulci. There is some chronic microvascular ischemic disease. There is no hydrocephalus. There is no midline shift. There is no intracranial mass, hemorrhage or extra-axial fluid collection. Calvarium is intact. Sinuses and mastoid air cells are clear. The alignment of the cervical spine is normal. The vertebral body heights are well-maintained. There is no fracture or traumatic subluxation. The odontoid is intact and the lateral masses are well aligned. There is posterior facet arthropathy. The lung apices are clear. The prevertebral soft tissues are within normal limits. IMPRESSION: Atrophy and some chronic microvascular ischemic disease, however, no acute intracranial abnormality. Mild cervical spondylosis without acute fracture or traumatic subluxation. Dictated by: Dictated on workstation # [id number]
--- NOTE | 2019-04-17 22:53 | ED Fall/Injury ---
General Chief Complaint: Trauma-Non Activation Stated Complaint: FALL Nursing Triage Note: fall Source: patient, EMS, [facility] records Exam Limitations: no limitations History of Present Illness Date Seen by Provider: April 17, 2019 Time Seen by Provider: 21:09 Initial Comments This 88-year-old woman with dementia presents to the emergency room via EMS after having a fall at the [facility]. She does not know the cause of her fall but she does recall falling and hitting her head. She initially complained of head and neck pain for EMS. She has no pain complaints for me upon arrival. She is alert to person and place but is otherwise disoriented. This is baseline according to report. No obvious injuries are seen. Patient has mild tachycardia but vital signs are otherwise stable. Location Injury Occurred: [facility] Allergies and Home Medications Allergies Coded Allergies: Sulfa (Sulfonamide Antibiotics) (Verified Allergy, Unknown, 12/13/14) Home Medications Acetaminophen 325 Mg Tab, 650 MG PO Q4H PRN for PAIN, (Reported) TAKES 2 (325MG) TABLETS Amlodipine Besylate 10 Mg Tablet, 10 MG PO DAILY, (Reported) Aspirin 81 Mg Tablet.dr, 81 MG PO DAILY, (Reported) Cephalexin 500 Mg Capsule, 500 MG PO TID Prescribed by: GIBRAN GONZALEZ on 12/06/16 1541 Docusate Sodium 100 Mg Cap, 100 MG PO HS, (Reported) Donepezil HCl 10 Mg Tablet, 10 MG PO HS, (Reported) Patient Home Medication List Home Medication List Reviewed: Yes Review of Systems Review of Systems Constitutional: no symptoms reported Eyes: No Symptoms Reported Ears, Nose, Mouth, Throat: no symptoms reported Respiratory: no symptoms reported Cardiovascular: see HPI Gastrointestinal: no symptoms reported Genitourinary: no symptoms reported : No Musculoskeletal: see HPI Skin: no symptoms reported Psychiatric/Neurological: See HPI Past Mcvuijb-Faaevk-Ncucew Hx Past Med/Social Hx: Reviewed Nursing Past Med/Soc Hx Patient Social History Alcohol Use: Denies Use Recreational Drug Use: No Smoking Status: Unknown if Ever Smoked 2nd Hand Smoke Exposure: No Recent Foreign Travel: No Contact w/Someone Who Travel: No Recent Infectious Disease Expo: No Recent Hopitalizations: No Immunizations Up To Date Tetanus Booster (TDap): Less than 5yrs Date of Pneumonia Vaccine: Jul 21, 2014 Date of Influenza Vaccine: Jul 21, 2014 Seasonal Allergies Seasonal Allergies: No Past Medical History Surgeries: Yes (ROCKY MASTECTOMY, HYSTERECTOMY) Breast, Hysterectomy, Orthopedic Respiratory: No Cardiac: Yes High Cholesterol, Hypertension Neurological: Yes Dementia : No Reproductive Disorders: No Female Reproductive Disorders: Denies 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, 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 Sexually Transmitted Disease: No HIV/AIDS: No Genitourinary: No UTI-Chronic Gastrointestinal: Yes Gastroesophageal Reflux, Hiatal Hernia Musculoskeletal: Yes Chronic Back Pain, Fractures Endocrine: No HEENT: No Loss of Vision: Denies Hearing Impairment: Denies Cancer: Yes Breast What Type of Treatment Did You: Surgical Intervention Psychosocial: Yes Depression Integumentary: No Blood Disorders: No Adverse Reaction/Blood Tranf: No Family Medical History Alzheimer's disease G8 SISTER Cataracts G8 SISTER Dementia G8 SISTER Diabetes mellitus 19 MOTHER G8 SISTER Hypertension G8 BROTHER G8 BROTHER G8 SISTER Kidney disease G8 SISTER Neoplasm 19 FATHER Respiratory disorder 19 FATHER No Family History of: AIDS Abdominal aortic aneurysm Fermin's disease Alcoholism Aphasia Arthritis Asthma Cancer of mouth Cardiovascular disease Colon cancer Completed stroke Congenital disease Congenital heart disease Coronary thrombosis Cystic fibrosis Deafness or hearing loss Drug abuse Dysphasia Fibrocystic disease of breast Gastroenteritis Glaucoma Headache disorder Hypercholesterolemia Infertility Myocardial infarction Not obtainable due to adoption Osteoporosis Parkinson's disease Prostate cancer Psychosocial problem Seizure disorder Severe allergy Thyroid disease Tuberculosis Visual disorder Physical Exam Vital Signs Vital Signs - First Documented 04/17/19 21:02 Temp 98.6 Pulse 101 Resp 16 B/P (MAP) 153/81 (105) Pulse Ox 93 O2 Delivery Room Air Capillary Refill : Less Than 3 Seconds Height, Weight, BMI Height: 5'4.00" Weight: 150lbs. 9.0oz. [id number]; 24.87 BMI Method:Estimated General Appearance: WD/WN, no apparent distress HEENT: PERRL/EOMI, normal ENT inspection Neck: non-tender, normal inspection Cardiovascular: no edema, no murmur, tachycardia (mild, regular) Respiratory: lungs clear, normal breath sounds, no respiratory distress, no accessory muscle use Gastrointestinal: non tender, soft Extremities: non-tender, normal inspection, no pedal edema, other (no pain with palpation or rotation of the hips) Neurologic/Psychiatric: [facility] II-XII nml as tested, no motor/sensory deficits, alert, normal mood/affect, other (disoriented to age and a month which is reportedly baseline) Skin: normal color, warm/dry [place] Coma Score Best Eye Response: (4) Open Spontaneously Best Verbal Response: (4) Confused Conversation Best Motor Response: (6) Obeys Commands Jeff Total: 14 Procedures/Interventions Suture Size: 5-0 Progress/Results/Core Measures Results/Orders Lab Results Laboratory Tests Test 04/17/19 21:30 04/17/19 23:00 Range/Units White Blood Count 7.7 4.3-11.0 10^3/uL Red Blood Count 4.83 4.35-5.85 10^6/uL Hemoglobin 14.2 11.5-16.0 G/DL Hematocrit 41 35-52 % Mean Corpuscular Volume 85 80-99 FL Mean Corpuscular Hemoglobin 29 25-34 PG Mean Corpuscular Hemoglobin Concent 35 32-36 G/DL Red Cell Distribution Width 13.0 10.0-14.5 % Platelet Count 301 130-400 10^3/uL Mean Platelet Volume 9.7 7.4-10.4 FL Neutrophils (%) (Auto) 68 42-75 % Lymphocytes (%) (Auto) 19 12-44 % Monocytes (%) (Auto) 11 0-12 % Eosinophils (%) (Auto) 1 0-10 % Basophils (%) (Auto) 0 0-10 % Neutrophils # (Auto) 5.3 1.8-7.8 X 10^3 Lymphocytes # (Auto) 1.4 1.0-4.0 X 10^3 Monocytes # (Auto) 0.9 0.0-1.0 X 10^3 Eosinophils # (Auto) 0.1 0.0-0.3 10^3/uL Basophils # (Auto) 0.0 0.0-0.1 10^3/uL Sodium Level 141 135-145 MMOL/L Potassium Level 4.0 3.6-5.0 MMOL/L Chloride Level 105 98-107 MMOL/L Carbon Dioxide Level 27 21-32 MMOL/L Anion Gap 9 5-14 MMOL/L Blood Urea Nitrogen 12 7-18 MG/DL Creatinine 0.71 0.60-1.30 MG/DL Estimat Glomerular Filtration Rate > 60 BUN/Creatinine Ratio 17 Glucose Level 132 H 70-105 MG/DL Calcium Level 9.8 8.5-10.1 MG/DL Corrected Calcium 9.6 8.5-10.1 MG/DL Total Bilirubin 0.4 0.1-1.0 MG/DL Aspartate Amino Transf (AST/SGOT) 20 5-34 U/L Alanine Aminotransferase (ALT/SGPT) 14 0-55 U/L Alkaline Phosphatase 91 40-136 U/L Total Protein 7.0 6.4-8.2 GM/DL Albumin 4.2 3.2-4.5 GM/DL Urine Color YELLOW Urine Clarity VERY CLOUDY H Urine pH 8 5-9 Urine Specific [place] 1.010 L 1.016-1.022 Urine Protein NEGATIVE NEGATIVE Urine Glucose (UA) NEGATIVE NEGATIVE Urine Ketones NEGATIVE NEGATIVE Urine Nitrite NEGATIVE NEGATIVE Urine Bilirubin NEGATIVE NEGATIVE Urine Urobilinogen NORMAL NORMAL MG/DL Urine Leukocyte Esterase NEGATIVE NEGATIVE Urine RBC (Auto) NEGATIVE NEGATIVE Urine RBC NONE /HPF Urine WBC NONE /HPF Urine Squamous Epithelial Cells RARE /HPF Urine Crystals PRESENT H /LPF Urine Amorphous Sediment LARGE MICKY PHOSPHATE H /LPF Urine Bacteria TRACE /HPF Urine Casts NONE /LPF Urine Mucus NEGATIVE /LPF Urine Culture Indicated NO My Orders Orders - GIBRAN ANDRES MD Ct Head/Cervical Spine Wo (04/17/19 21:21) Chest 1 View, Ap/Pa Only (04/17/19 21:21) Pelvis (04/17/19 21:21) Ed Iv/Invasive Line Start (04/17/19 21:21) Cbc With Automated Diff (04/17/19 21:21) Comprehensive Metabolic Panel (04/17/19 21:21) Ua Culture If Indicated (04/17/19 21:21) Vital Signs/I&O 04/17/19 04/17/19 21:02 23:39 Temp 98.6 97.7 Pulse 101 83 Resp 16 16 B/P (MAP) 153/81 (105) 130/43 (72) Pulse Ox 93 94 O2 Delivery Room Air Room Air Blood Pressure Mean: 105 Diagnostic Imaging Diagonstic Imaging: CT Plain Films/CT/US/NM/MRI: c-spine, head Comments CT head and C-spine viewed by me and report reviewed. See report below: NAME: [facility] REC#: [id number] PT STATUS: REG ER : 1932 PHYSICIAN: GIBRAN ANDRES MD ADMIT DATE: 04/17/19/ER Draft Date of Exam:04/17/19 CT HEAD/CERVICAL SPINE WO PROCEDURE: CT head and CT cervical spine without contrast. TECHNIQUE: Multiple contiguous axial images were obtained through the brain and cervical spine without the use of intravenous contrast. Sagittal and coronal reformations through the cervical spine were then performed. Auto Exposure Controls were utilized during the CT exam to meet ALARA standards for radiation dose reduction. INDICATION: Head and neck pain after fall. Comparison is made with prior examination from 01/18/2019. FINDINGS: There is prominence of the ventricles and sulci. There is some chronic microvascular ischemic disease. There is no hydrocephalus. There is no midline shift. There is no intracranial mass, hemorrhage or extra-axial fluid collection. Calvarium is intact. Sinuses and mastoid air cells are clear. The alignment of the cervical spine is normal. The vertebral body heights are well-maintained. There is no fracture or traumatic subluxation. The odontoid is intact and the lateral masses are well aligned. There is posterior facet arthropathy. The lung apices are clear. The prevertebral soft tissues are within normal limits. IMPRESSION: Atrophy and some chronic microvascular ischemic disease, however, no acute intracranial abnormality. Mild cervical spondylosis without acute fracture or traumatic subluxation. Dictated on workstation # [id number] Dict: 04/17/197 Trans: 04/17/19 2203 [facility] [id number] Interpreted by: REY SOLOMON MD Diagonstic Imaging: Xray Plain Films/CT/US/NM/MRI: chest Comments Chest x-ray viewed by me and compared with prior. Report not yet available. No significant change from prior appreciated. Chronic congestive changes and atelectasis/scarring. Diagonstic Imaging: Xray Plain Films/CT/US/NM/MRI: pelvis Comments Pelvis x-ray viewed by me. Report not yet available. No fractures or dislocations appreciated. Departure Impression Primary Impression: Fall on same level Qualified Codes: W18.30XA - Fall on same level, unspecified, initial encounter Additional Impression: Dementia Qualified Codes: F03.90 - Unspecified dementia without behavioral disturbance Disposition: 01 HOME, SELF-CARE Condition: Improved Departure-Patient Inst. Decision time for Depature: 23:21 Referrals: PRAVEENA TRIMBLE MD (PCP/Family) Primary Care Physician Patient Instructions: Preventing Falls in the Older Adult Add. Discharge Instructions: Return to care or contact her doctor if there are any problems or concerns All discharge instructions reviewed with patient and/or family. Voiced understanding. GIBRAN ANDRES MD April 17, 2019 22:53
[2019-04-17 23:07] LABS: BILIRUBIN,URINE NEGATIVE (NEGATIVE); CLARITY,URINE VERY CLOUDY; COLOR,URINE YELLOW; GLUCOSE, URINE (UA) NEGATIVE (NEGATIVE); KETONES,URINE NEGATIVE (NEGATIVE); LEUKOCYTE ESTERASE ,URINE NEGATIVE (NEGATIVE); NITRITE,URINE NEGATIVE (NEGATIVE); PH,URINE 8 (5-9); PROTEIN,URINE NEGATIVE (NEGATIVE); UROBILINOGEN,URINE NORMAL (NORMAL)
--- NOTE | 2019-04-17 23:15 | NUR ---
[facility] called to give patient a ride.
[2019-04-17 23:17] LABS: AMORPHOUS SEDIMENT,UR LARGE AMOR PHOSPHATE /LPF; BACTERIA,URINE TRACE /HPF; SQUAMOUS EPITHELIAL CELL,UR RARE /HPF
[2019-04-17 23:39] VITALS: BP 130/43
--- NOTE | 2019-04-18 07:34 | Diagnostic Imaging Report ---
INDICATION: Fall with chest pain. AP view of the chest is obtained with comparison made study of 01/18/2019. FINDINGS: There is continued elevation of the right hemidiaphragm with basilar and right perihilar scarring. There is no evidence of pneumothorax or consolidation. No significant pulmonary contusion is seen. There are advanced degenerative findings in the right shoulder. IMPRESSION: Stable chest without acute abnormality or adverse change. Dictated by: Dictated on workstation # [id number]
--- NOTE | 2019-04-18 07:36 | Diagnostic Imaging Report ---
INDICATION: Fall with pelvic pain. AP view of the pelvis is obtained. Comparison is made study of 07/27/2018. FINDINGS: There is diffuse demineralization which limits evaluation. Surgical changes are seen in the lower lumbar spine with associated degenerative change. No definite fracture or malalignment is identified. IMPRESSION: Chronic findings without acute abnormality detected. Dictated by: Dictated on workstation # [id number]
== END 2019-04-17 23:56 | disposition home or self-care (01) ==
LOC: EDUNIT# 20:58 → ER 20:59
DX: F03.90 Unspecified dementia, unspecified severity, without behavioral disturbance, psychotic disturbance, mood disturbance, and anxiety (principal); R51 Headache; M54.2 Cervicalgia; E78.00 Pure hypercholesterolemia, unspecified; I10 Essential (primary) hypertension; K21.9 Gastro-esophageal reflux disease without esophagitis; F32.9 Major depressive disorder, single episode, unspecified; R40.2142 Coma scale, eyes open, spontaneous, at arrival to emergency department; R40.2242 Coma scale, best verbal response, confused conversation, at arrival to emergency department; R40.2362 Coma scale, best motor response, obeys commands, at arrival to emergency department; Z82.49 Family history of ischemic heart disease and other diseases of the circulatory system; Z85.3 Personal history of malignant neoplasm of breast; Z87.19 Personal history of other diseases of the digestive system; Z87.440 Personal history of urinary (tract) infections; Z88.2 Allergy status to sulfonamides; Z90.13 Acquired absence of bilateral breasts and nipples; Z90.710 Acquired absence of both cervix and uterus; Z79.82 Long term (current) use of aspirin; W19.XXXA Unspecified fall, initial encounter; W22.09XA Striking against other stationary object, initial encounter; Y92.129 Unspecified place in nursing home as the place of occurrence of the external cause
CPT/HCPCS: 36415; 70450; 71045; 72125; 72170; 80053; 81000; 85025

== ENCOUNTER 2019-04-25 10:24 | Outpatient (CLI) | payer MEDICARE, OTHER, MEDICAID ==
[~2019-04-25] VITALS: Ht 162.6 cm; Wt 68.3 kg
[~2019-04-25 10:24] MED LIST changes: +MIRT15TA6 PO
[2019-04-25] MEDS ORDERED: ACET325C5 PO (11:30)
[2019-04-25] MEDS ORDERED: DOCU100C37 PO (11:30)
[2019-04-25] MEDS ORDERED: CEPH-507 PO (11:30)
[2019-04-25] MEDS ORDERED: LACT1CAP87 PO (11:30)
[2019-04-25] MEDS ORDERED: RISP0.253 PO (11:30)
[2019-04-25] MEDS ORDERED: ASPI-586 PO (11:30)
[2019-04-25] MEDS ORDERED: AMLO10TA7 PO (11:30)
[2019-04-25] MEDS ORDERED: DONE10TA41 PO (11:30)
== END 2019-04-25 12:16 | disposition home or self-care (01) ==
LOC: PREOP 10:24
PROVIDERS: ATTEND Surgery
DX: Z01.818 Encounter for other preprocedural examination (principal)
CPT/HCPCS: 87081

== ENCOUNTER 2019-05-02 06:47 | Day surgery (SDC) | payer MEDICARE, OTHER, MEDICAID ==
[~2019-05-02] VITALS: Ht 162.6 cm; Wt 68.3 kg
[2019-05-02] VITALS (11 sets, daily range): BP systolic 106–154; BP diastolic 41–70
[~2019-05-02 06:47] MED LIST changes: +ACET325C5 PO; +AMLO10TA7 PO; +ASPI-586 PO; +DOCU100C37 PO; +DONE10TA41 PO; +LACT1CAP87 PO; +RISP0.253 PO
[2019-05-02] MEDS ORDERED: ceFAZolin 2 GM/50 ML NS 50 ML IV ONE (07:00)
[2019-05-02] MEDS: LACTATED RINGERS 1,000 ML IV PRN ×2 (07:12→10:15)
--- NOTE | 2019-05-02 08:12 | Progress Note-Pre Operative ---
Pre-Operative Progress Note H&P Reviewed The H&P was reviewed, patient examined and no changes noted. Date Seen by Provider: May 02, 2019 Time Seen by Provider: 08:10 Date H&P Reviewed: May 02, 2019 Time H&P Reviewed: 08:05 Pre-Operative Diagnosis: Symptomatic Lesion Tip of Nose CRISTHIAN NORRIS APRN May 02, 2019 08:12
[2019-05-02] MEDS ORDERED: fentaNYL INJECTION 100 MCG/2 ML AMP IVP PRN (08:15)
[2019-05-02] MEDS ORDERED: ONDANSETRON 4 MG/2 ML (SDV) Z0FRAN IVP PRN ×2 (08:15→10:30)
[2019-05-02] MEDS ORDERED: HYDR-3812 PO (08:21)
--- NOTE | 2019-05-02 08:21 | Discharge Inst-Surgical ---
D/C Lap Instructions-KIDO New, Converted, or Re-Newed RX: RX on Chart Follow Up Appt in 2 weeks Activity as tolerated No driving for 24 hours No [address] while on pain medications Incentive Spirometry use every 2 hours while awake Regular Diet Symptoms to Report: Fever over 101 degree F, Nausea/Vomiting Infection Signs and Symptoms to report: Increased redness, Foul odor of wound, Increased drainage Bathing instructions: May shower Operative Area Clean/Dry; Keep incision clean/dry If any problems/questions: Contact your physician or go to Emergency Room CRISTHIAN NORRIS APRN May 02, 2019 08:21
[2019-05-02] MEDS ORDERED: fentaNYL INJECTION 100 MCG/2 ML AMP ONE (08:35)
[2019-05-02] MEDS ORDERED: ONDANSETRON 4 MG/2 ML (SDV) Z0FRAN ONE (08:35)
[2019-05-02] MEDS ORDERED: LIDOCAINE PF 2% 5 ML (XYLOCAINE) VIAL ONE (08:35)
[2019-05-02] MEDS ORDERED: proPOfol 200 MG/20 ML (DIPRIVAN) VIAL IV ONE (08:35)
[2019-05-02] MEDS ORDERED: MIDAZOLAM 2 MG/2 ML (VERSED) VIAL ONE (08:36)
[2019-05-02] MEDS ORDERED: DEXAMETHASONE 10 MG/ML (DECADRON) 1 ML VIAL ONE (08:39)
[2019-05-02] MEDS ORDERED: BUPIVACAINE 0.5% 30 ML (SENSORCAINE) VIAL ONE (08:54)
[2019-05-02] MEDS ORDERED: BSS 15 ML ONE (10:05)
--- NOTE | 2019-05-02 10:26 | Progress Note-Post Operative ---
Post-Operative Progess Note Surgeon (s)/Delinquent Tax Collection Assistant (s) Surgeon TED DOSHI MD Delinquent Tax Collection Assistant: magui ramirez SENIOR INFRASTRUCTURE ENGINEER Pre-Operative Diagnosis Symptomatic Lesion Tip of Nose Post-Operative Diagnosis same(2x1.5cm) Procedure & Operative Findings Date of Procedure 05/02/19 Procedure Performed/Findings wide excision nose lesion with full thickness skin graft from right neck. Anesthesia Type general LMA Estimated Blood Loss Estimated blood loss (mL): minimal Specimens/Packing Specimens Removed tip of nose lesion TED DOSHI MD May 02, 2019 10:26
[2019-05-02] MEDS ORDERED: morphine INJ 10 MG/ML 1ML (SYR OR VIAL) IVP ONE (10:30)
--- NOTE | 2019-05-02 10:38 | Anesthesia-General Post-Op ---
MAC Patient Condition Mental Status/LOC: Same as Preop Cardiovascular: Satisfactory Nausea/Vomiting: Absent Respiratory: Satisfactory Pain: Controlled Complications: Absent Post Op Complications Complications None Follow Up Care/Instructions Patient Instructions None needed. Anesthesiology Discharge Order Discharge Order Patient is doing well, no complaints, stable vital signs, no apparent adverse anesthesia problems. No complications reported per nursing. ESPERANZA FLORES CRNA May 02, 2019 10:38
--- NOTE | 2019-05-02 11:25 | NUR ---
CALLED REPORT TO NURSE BECKA AT [facility].
[2019-05-02] MEDS ORDERED: ACETAMINOPHEN 500 MG TAB (TYLENOL) PO SCH (12:00)
--- NOTE | 2019-05-02 17:15 | OPERATIVE REPORT ---
DATE OF SERVICE: 05/02/2019 ATTENDING PRIMARY CARE PHYSICIAN: Dr. Luna Nunn. PREOPERATIVE DIAGNOSIS: Symptomatic large skin lesion at the tip of the nose which appears to be a basal cell or squamous cell skin cancer. 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 PROCEDURE: Wide excision tip of nose lesion with full thickness skin graft taken from the right neck. SURGEON: Ted Doshi MD DRY CHAIN WORKER: Rubens Duffy APRN. ANESTHESIA: General laryngeal mask airway. ESTIMATED BLOOD LOSS: Minimal. FINDINGS: A full thickness lesion at the tip of the nose, which was central. No invasion of the underlying cartilage. DISPOSITION: The patient tolerated the procedure well. The patient is an 88-year-old female with history of ECF in the resident of a [facility]. She has had a lesion of the tip of the nose which has been there for approximately 1 year; however, has grown significantly larger in size. As the lesion has grown larger in size, she does inadvertently scratched the lesion, which causes bleeding. Upon examination in the office, she did have a large lesion at the tip of the nose which was central. There was a central ulceration as well. 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 Due to the size of the lesion and location, the recommendation was to proceed with wide excision under anesthesia as well as a full thickness skin graft. DESCRIPTION OF PROCEDURE: The patient was brought to the operating room, laid supine on the table. After adequate IV pain and sedative medications and general laryngeal mask airway intubation, the face and neck were prepped and draped in standard surgical fashion. A 0.5% Marcaine with epinephrine was then used to anesthetize the overlying skin at the tip of the nose. The lesion was measured out to a normal skin and measured dimensions were approximately 2 x 1.5 cm in size. We then proceeded with full excision of the lesion using a 15 blade to the fascia. There was no involvement of the underlying fascia, cartilage or bone. Good hemostasis was achieved using electrocautery. We then proceeded with harvesting of the full thickness skin graft after being measured out at the base of the right neck. This was then anesthetized using 0.5% Marcaine. The lesion was then excised full thickness to the level of the subcutaneous fat using a 15 blade using sharp dissection. The skin graft was then placed circumferentially around the tip of the nose using 4-0 Prolene interrupted sutures. The harvest site was then closed using 4-0 Monocryl running subcuticular suture and covered with Dermabond. The nose lesion was covered with a bulky nonstick followed by gauze dressing. The patient tolerated the procedure well. We will recommend to remove the dressing in approximately 24 hours and to then proceed to place a nonstick followed by gauze dressing or Band-Aid at all times. We will also recommend that staff at her extended care facility proceed with all necessary precautions of preventing the patient from scratching or picking at the skin graft. We will have her follow up in approximately one week to reevaluate the wound as well as to remove some of the sutures as necessary. Job ID: [id number] DocumentID: [id number] Dictated Date: 05/02/2019 10:33:48 Vice President Regulatory Date: 05/02/2019 17:14:57 Dictated By: TED DOSHI MD MTDD
== END 2019-05-02 12:22 | disposition home or self-care (01) ==
LOC: SDC 06:47
PROVIDERS: ATTEND Surgery
DX: C44.311 Basal cell carcinoma of skin of nose (principal); I10 Essential (primary) hypertension; K21.9 Gastro-esophageal reflux disease without esophagitis; K44.9 Diaphragmatic hernia without obstruction or gangrene; G30.9 Alzheimer's disease, unspecified; F02.80 Dementia in other diseases classified elsewhere, unspecified severity, without behavioral disturbance, psychotic disturbance, mood disturbance, and anxiety; F32.9 Major depressive disorder, single episode, unspecified; Z85.3 Personal history of malignant neoplasm of breast; Z79.82 Long term (current) use of aspirin; Z79.899 Other long term (current) drug therapy
CPT/HCPCS: 88305

== ENCOUNTER 2020-09-08 05:39 | Emergency (ER) | payer MEDICARE, OTHER, MEDICAID ==
[~2020-09-08] VITALS: Ht 157 cm; Wt 68.0 kg
[~2020-09-08 05:39] MED LIST changes: -ACET325C5 PO; +ACET325C7 PO; +ACHD5005 PO
--- NOTE | 2020-09-08 05:57 | ED Fall/Injury ---
General Chief Complaint: Trauma-Non Activation Stated Complaint: FALL-LACERATION Nursing Triage Note: TO ED VIA [facility] FROM [facility]. STAFF FOUND PT AFTER FALL. LAC AND SWELLING NOTED TO LEFT SIDE FOREHEAD. TAKES 81MG ASA PO DAILY. C COLLAR IN PLACE VIA EMS EN ROUTE. Source: patient, EMS, shelter records Exam Limitations: no limitations (GIBRAN ANDRES MD) History of Present Illness Date Seen by Provider: Sep 08, 2020 Time Seen by Provider: 05:40 Initial Comments This 89-year-old woman presents to the emergency room via EMS after having an unwitnessed fall at [facility] in [place]. It is uncertain if there was loss of consciousness. She did complain of some neck pain and head pain to EMS. She has contusion with edema and a small laceration on the left forehead. There is some subtle oozing of blood at this time. EMS applied a c-collar and it remains on. Patient is alert, follows commands, and answer some questions. She is not conversant but this is her baseline dementia status as reported by shelter staff via EMS. Vital signs are stable. Patient had a tetanus immunization in 2017. (GIBRAN ANDRES MD) Allergies and Home Medications Allergies Coded Allergies: adhesive tape (Verified Allergy, Mild, RASH, 04/25/19) Sulfa (Sulfonamide Antibiotics) (Verified Allergy, Unknown, 04/25/19) Home Medications Acetaminophen 325 Mg Capsule, 325 MG PO Q4H PRN for PAIN-MILD, (Reported) Amlodipine Besylate 10 Mg Tablet, 10 MG PO DAILY, (Reported) Aspirin 81 Mg Tablet.dr, 81 MG PO DAILY, (Reported) Cephalexin 500 Mg Capsule, 500 MG PO DAILY, (Reported) Docusate Sodium 100 Mg Capsule, 100 MG PO HS, (Reported) Donepezil HCl 10 Mg Tablet, 10 MG PO HS, (Reported) Hydrocodone Bit/Acetaminophen 1 Each Tablet, 1-2 TAB PO Q4H Prescribed by: CRISTHIAN NORRIS on 05/02/19 0821 Lactobacillus Acidophilus 1 Each Capsule, 1 EACH PO BID, (Reported) Risperidone 0.25 Mg Tablet, 0.25 MG PO HS, (Reported) Patient Home Medication List Home Medication List Reviewed: Yes (GIBRAN ANDRES MD) Review of Systems Review of Systems Constitutional: no symptoms reported Eyes: No Symptoms Reported Ears, Nose, Mouth, Throat: no symptoms reported Respiratory: no symptoms reported Cardiovascular: no symptoms reported Gastrointestinal: no symptoms reported Genitourinary: no symptoms reported : No Musculoskeletal: see HPI Skin: see HPI Psychiatric/Neurological: See HPI (GIBRAN ANDRES MD) Past Dquytre-Fmiwfc-Ezeyva Hx Past Med/Social Hx: Reviewed Nursing Past Med/Soc Hx (GIBRAN ANDRES MD) Patient Social History Alcohol Use: Denies Use Recreational Drug Use: No 2nd Hand Smoke Exposure: No Recent Foreign Travel: No Contact w/Someone Who Travel: No Recent Infectious Disease Expo: No Recent Hopitalizations: No (GIBRAN ANDRES MD) Immunizations Up To Date Tetanus Booster (TDap): Less than 5yrs Date of Pneumonia Vaccine: Jan 21, 2019 Date of Influenza Vaccine: Jan 21, 2019 (GIBRAN ANDRES MD) Seasonal Allergies Seasonal Allergies: No (GIBRAN ANDRES MD) Past Medical History Surgeries: Yes (ROCKY MASTECTOMY, HYSTERECTOMY) Breast, Hysterectomy, Orthopedic Respiratory: No Cardiac: Yes High Cholesterol, Hypertension Neurological: Yes Dementia Reproductive Disorders: No Female Reproductive Disorders: Denies [employer] History: Hysterectomy, Menopausal Sexually Transmitted Disease: No HIV/AIDS: No Genitourinary: Yes UTI-Chronic Gastrointestinal: Yes Gastroesophageal Reflux, Hiatal Hernia Musculoskeletal: Yes Chronic Back Pain, Fractures Endocrine: No HEENT: Yes Loss of Vision: Denies Hearing Impairment: Denies Cancer: Yes Breast What Type of Treatment Did You: Surgical Intervention Psychosocial: Yes Depression Integumentary: No Blood Disorders: No Adverse Reaction/Blood Tranf: No (GIBRAN ANDRES MD) Family Medical History Reviewed Nursing Family Hx (GIBRAN ANDRES MD) Alzheimer's disease G8 SISTER Cataracts G8 SISTER Dementia G8 SISTER Diabetes mellitus 19 MOTHER G8 SISTER Hypertension G8 BROTHER G8 BROTHER G8 SISTER Kidney disease G8 SISTER Neoplasm 19 FATHER Respiratory disorder 19 FATHER No Family History of: AIDS Abdominal aortic aneurysm Fermin's disease Alcoholism Aphasia Arthritis Asthma Cancer of mouth Cardiovascular disease Colon cancer Completed stroke Congenital disease Congenital heart disease Coronary thrombosis Cystic fibrosis Deafness or hearing loss Drug abuse Dysphasia Fibrocystic disease of breast Gastroenteritis Glaucoma Headache disorder Hypercholesterolemia Infertility Myocardial infarction Not obtainable due to adoption Osteoporosis Parkinson's disease Prostate cancer Psychosocial problem Seizure disorder Severe allergy Thyroid disease Tuberculosis Visual disorder Physical Exam Vital Signs Vital Signs - First Documented 09/08/20 05:42 Temp 36.4 Pulse 82 Resp 16 B/P (MAP) 126/87 (100) O2 Delivery Room Air (ANABELLA BARONE MD) Vital Signs Capillary Refill : Less Than 3 Seconds (GIBRAN ANDRES MD) Height, Weight, BMI Height: 5'4.00" Weight: 150lbs. 9.0oz. 68.376170pc; 27.00 BMI Method:Estimated General Appearance: WD/WN, no apparent distress HEENT: PERRL/EOMI, normal ENT inspection, pharynx normal, other (Contusion on the left forehead with swelling and a 1 cm laceration slightly oozing blood) Neck: normal inspection Cardiovascular: regular rate, rhythm, no edema, no murmur Respiratory: lungs clear, normal breath sounds, no respiratory distress Gastrointestinal: normal bowel sounds, non tender, soft Extremities: non-tender, normal inspection, no pedal edema, other (No hip tenderness or pain with rotation of the hips) Neurologic/Psychiatric: automatic hemmer II-XII nml as tested, no motor/sensory deficits, alert, normal mood/affect, other (Confusion is at baseline because of dementia) Skin: normal color, warm/dry (GIBRAN ANDRES MD) Procedures/Interventions Suture Size: 5-0 (GIBRAN ANDRES MD) Progress/Results/Core Measures Results/Orders Lab Results Laboratory Tests Test 09/08/20 05:55 Range/Units Urine Color YELLOW Urine Clarity TURBID Urine pH 6.0 5-9 Urine Specific [place] 1.020 1.016-1.022 Urine Protein NEGATIVE NEGATIVE Urine Glucose (UA) NEGATIVE NEGATIVE Urine Ketones NEGATIVE NEGATIVE Urine Nitrite NEGATIVE NEGATIVE Urine Bilirubin NEGATIVE NEGATIVE Urine Urobilinogen 1.0 < = 1.0 MG/DL Urine Leukocyte Esterase 2+ H NEGATIVE Urine RBC (Auto) NEGATIVE NEGATIVE Urine RBC NONE /HPF Urine WBC 25-50 H /HPF Urine Squamous Epithelial Cells 2-5 /HPF Urine Crystals NONE /LPF Urine Bacteria LARGE H /HPF Urine Casts NONE /LPF Urine Mucus NEGATIVE /LPF Urine Culture Indicated YES (ANABELLA BARONE MD) Vital Signs/I&O 09/08/20 05:42 Temp 36.4 Pulse 82 Resp 16 B/P (MAP) 126/87 (100) O2 Delivery Room Air (ANABELLA BARONE MD) Blood Pressure Mean: 100 Progress Progress Note : Time: 06:07 Progress Note Patient was seen and examined upon arrival. CT of the head and cervical spine was ordered along with a pelvic x-ray. Care of this patient is being transitioned to Dr. Barone. (GIBRAN ANDRES MD) Progress Note : Time: 07:03 Progress Note Patient care assumed at shift change. 89-year-old from a local nursing facility after unwitnessed fall. Patient has obvious contusion to the left forehead. By report the patient is nonverbal and has a history of Alzheimer's dementia. Patient is alert on my evaluation. She seems to answer yes and no questions appropriately. Patient has a small less than half centimeter superficial laceration to the left forehead with surrounding contusion and abrasion. No active bleeding is noted. Pupils are equal round and reactive to light. Patient has no complaints of extremity injury. CT scan of the brain shows no acute intracranial process with chronic underlying changes. CT cervical spine shows no acute osseous traumatic injury or significant abnormal alignment involving the cervical spine. her c-collar was removed by me. Patient demonstrates active range of motion without discomfort. Palpation of the cervical spine reveals no step-offs or tenderness over the bony cervical spine. Patient's pelvis x-ray is unremarkable with no acute fractures noted. Patient will be discharged back to the nursing facility after dressing is applied to her forehead. Routine wound care. (ANABELLA BARONE MD) Diagnostic Imaging Diagonstic Imaging: Xray (Pelvis), CT (CT brain no acute intracranial abnormalities noted by stat rad) Plain Films/CT/US/NM/MRI: c-spine (No acute fractures noted interpreted by stat rad), pelvis (No acute fracture noted, reviewed by me) (ANABELLA BARONE MD) Departure Impression Primary Impression: Fall on same level Qualified Codes: W18.30XA - Fall on same level, unspecified, initial encounter Additional Impressions: Forehead laceration Qualified Codes: S01.81XA - Laceration without foreign body of other part of head, initial encounter Forehead contusion Qualified Codes: S00.83XA - Contusion of other part of head, initial encounter Disposition: 01 HOME, SELF-CARE Condition: Stable Departure-Patient Inst. Decision time for Depature: 07:08 (ANABELLA BARONE MD) Referrals: PRAVEENA TRIMBLE MD (PCP/Family) Primary Care Physician Patient Instructions: Concussion, Adult (DC), Contusion (DC) Add. Discharge Instructions: Keep the wound clean dry and covered for the next 2 to 3 days. Apply Neosporin topically twice a day over the superficial laceration to the forehead Return to the emergency room for any excessive vomiting, worsening alteration in mental functioning, any other emergent concerning symptoms. All discharge instructions reviewed with patient and/or family. Voiced understanding. GIBRAN ANDRES MD Sep 08, 2020 05:57 ANABELLA BARONE MD Sep 08, 2020 07:08
[2020-09-08 06:19] LABS: BILIRUBIN,URINE NEGATIVE (NEGATIVE); CLARITY,URINE TURBID; COLOR,URINE YELLOW; GLUCOSE, URINE (UA) NEGATIVE (NEGATIVE); KETONES,URINE NEGATIVE (NEGATIVE); LEUKOCYTE ESTERASE ,URINE 2+ (NEGATIVE); NITRITE,URINE NEGATIVE (NEGATIVE); PROTEIN,URINE NEGATIVE (NEGATIVE)
[2020-09-08 06:33] LABS: BACTERIA,URINE LARGE /HPF; WBC,URINE 25-50 /HPF
--- NOTE | 2020-09-08 07:07 | NUR ---
REPORT FROM CHANDAN ISRAEL
--- NOTE | 2020-09-08 07:07 | NUR ---
DR. BARONE REMOVED C COLLAR AT THIS TIME.
--- NOTE | 2020-09-08 07:15 | NUR ---
[facility] NOTIFIED OF PENDING DISCHARGE, FACILITY TO ARRANGE TRANSPORT BACK.
--- NOTE | 2020-09-08 07:47 | Diagnostic Imaging Report ---
Indication: Fall with pelvic pain AP view of the pelvis is obtained. Comparison is made study of 04/17/2019. AP view of pelvis is obtained. FINDINGS: No acute fracture or dislocation is identified. No abnormal lytic or sclerotic focus is seen, and there is no radiopaque foreign body. IMPRESSION: No acute abnormality. Dictated by: Dictated on workstation # [id number]
--- NOTE | 2020-09-08 07:47 | Diagnostic Imaging Report ---
Clinical indications: Patient status post fall with head laceration. Exam: Axial Head CT without IV contrast with sagittal and coronal reformations. Axial CT scan of the cervical spine with sagittal and coronal reformations. Auto Exposure Controls were utilized during the CT exam to meet ALARA standards for radiation dose reduction. Comparison: CT scan of the head cervical spine dated 04/17/2019. Findings: Head CT: There is no evidence of acute cerebral infarct, intracranial hemorrhage, or gross mass effect. There is diffuse brain parenchymal volume loss seen. There is diffuse low-density again seen throughout the white matter both cerebral hemispheres and periventricular regions. There is normal bronson-white matter distinction. There is no significant midline shift or herniation. There is no evidence of hydrocephalus. The basal cisterns are unremarkable. There is a small to moderate size area of extracranial soft tissue swelling/hematoma involving the left anterior aspect of the head. There is no skull fracture. Otherwise, the skull, extracranial soft tissue, and orbits are unremarkable. There is minimal mucosal thickening involving right maxillary sinus and ethmoid sinus. There is sclerosis of the bilateral mastoid air cells and small patchy consolidation noted. Cervical spine: Patient body habitus and streak artifact obscures portions of the lower cervical spine and upper thoracic spine. There is diffuse osteopenia. There is no gross acute cervical spine fracture or dislocation. There are cervical spine degenerative spurs and facet arthropathy seen. There is mild atelectasis or scarring involving both upper lung field regions as visualized. There is no significant neck soft tissue abnormality. Vascular calcifications of the carotid arteries noted. IMPRESSION: 1: There is no evidence of acute intracranial process. There is no intracranial hemorrhage. 2: There is a small moderate size area of extracranial soft tissue swelling/hematoma involving the left anterior aspect of the head. There is no skull fracture. 3: Cervical spine degenerative disease with no acute fracture or dislocation. I agree with [facility] report. Dictated by: Dictated on workstation # [id number]
[2020-09-08 07:56] VITALS: BP 120/58
--- NOTE | 2020-09-08 07:56 | NUR ---
STAFF FROM [facility] HERE FOR PT. DISCHARGE INSTR DISCUSSED, UNDERSTANDING VOICED. NO QUESTIONS
== END 2020-09-08 08:06 | disposition home or self-care (01) ==
LOC: EDUNIT# 05:39 → ER 05:40
DX: S01.81XA Laceration without foreign body of other part of head, initial encounter (principal); G89.29 Other chronic pain; M54.9 Dorsalgia, unspecified; F03.90 Unspecified dementia, unspecified severity, without behavioral disturbance, psychotic disturbance, mood disturbance, and anxiety; I10 Essential (primary) hypertension; Z88.2 Allergy status to sulfonamides; Z82.49 Family history of ischemic heart disease and other diseases of the circulatory system; Z83.3 Family history of diabetes mellitus; Z80.9 Family history of malignant neoplasm, unspecified; Z85.3 Personal history of malignant neoplasm of breast; Z79.891 Long term (current) use of opiate analgesic; Z79.82 Long term (current) use of aspirin; W18.30XA Fall on same level, unspecified, initial encounter
CPT/HCPCS: 51701; 70450; 72125; 72170; 81000; 87077; 87088

== ENCOUNTER → 2021-06-12 | Outpatient (CLI) | payer OTHER, MEDICARE, MEDICAID ==
[~2021-06-12] MED LIST changes: +AMLO-251 PO; -AMLO10TA7 PO; +MIRT-68 PO; -MIRT15TA6 PO
== END ==
PROVIDERS: ATTEND Internal Medicine
DX: R19.5 Other fecal abnormalities (principal)
CPT/HCPCS: 82274